=== PATIENT | female | born 1950 | race Caucasian/White ===

== ENCOUNTER 2019-11-28 12:53 | Inpatient (IN) ==
[2019-11-28] MEDS ORDERED: ONDANSETRON INJ 2 MG/ML 2 ML VIAL IV PRN (13:58)
[2019-11-28] MEDS ORDERED: MoRPHine SULFATE 4 MG/ML 1 ML CARP\\VIAL IV STA (13:58)
--- NOTE | 2019-11-28 14:34 | Emergency Department Note ---
Impression & Plan Uncontrolled type 2 diabetes mellitus, Left sided sciatica, Urinary tract infection ED Provider Note CHIEF COMPLAINT: Low back pain, hyperglycemia HISTORY OF PRESENTING ILLNESS: This is a 69-year-old female who presents to the emergency department by private vehicle with complaint of low back pain radiating into her left leg for the past 2 months. Patient states that she does not have a primary care provider but she has been going to other emergency departments and urgent cares to receive treatment for this. She notes that she went to [facility] emergency department for her back pain initially and they did an MRI of her back and told her she had a lot of arthritis in her back. She states they started her on a muscle relaxer and steroids for this. She states the pain is constant, starts in her left lower back and radiates down the buttock into the leg, she describes it as burning and stabbing and rates the pain 8/10. She has been taking Tylenol without much relief. Patient's granddaughter states that she was trying to get her set up with a primary care provider and took her to [facility] today for the back pain, they were concerned because her blood glucose level was >600, so they sent her to the ER for further evaluation. The patient notes that she used to be on insulin, but she stopped taking all of her medications about 2 years ago. Patient's granddaughter states that she seems to have gone downhill over the past 2 to 3 months and has lost over 30 pounds and is having difficulty caring for herself. She states she also is barely able to walk because of the pain in her back and leg. The patient denies any headaches, neck pain, chest pain, shortness of breath, abdominal pain, dizziness or syncope. She denies any fevers or chills. She reports a h istory of smoking about 1/2 pack a day, but states she quit smoking about 2 months ago when her back pain became really bad. She denies any numbness/tingling or weakness in the legs, but is having difficulty walking because of severe pain. She denies any bowel or bladder dysfunction and denies saddle paresthesias. REVIEW OF SYSTEMS: A complete 10 point review of systems was reviewed with the patient with pertinent positives and negatives as per history of present illness. All else were negative. PAST MEDICAL HISTORY: Type 2 diabetes SOCIAL HISTORY: Lives at home, she is a former smoker ALLERGIES: Reviewed in chart and with the patient PHYSICAL EXAM: CONSTITUTIONAL: Pleasant and cooperative. Nontoxic-appearing and in no acute distress. Cachectic and thin, appears dehydrated and malnourished. HEENT: Normocephalic, atraumatic. Pharynx normal. Dry mucous membranes. NECK: Supple, full active range of motion without discomfort. RESPIRATORY: Clear to auscultation bilaterally with no wheezing, crackles, rhonchi or stridor. Equal expansion bilaterally. CARDIOVASCULAR: Regular rate and rhythm with no murmurs, rubs or gallops. Normal peripheral perfusion. No edema. GASTROINTESTINAL: Soft, nontender, nondistended. No palpable masses or HSM. Bowel sounds present in all quadrants. No CVA tenderness bilaterally. MUSCULOSKELETAL: Full range of motion of all joints without discomfort. INTEGUMENTARY: Poor skin turgor with dry skin. Skin is pink and warm, brisk capillary refill. No rash or other significant dermatologic conditions noted. NEUROLOGIC: Alert and oriented X 4 with normal affect. No focal neurologic deficits noted. 5/5 strength in all 4 extremities, dorsiflexion and plantarflexion intact bilaterally. Sensation intact light touch in all 4 extremities. Normal speech. ED COURSE AND MEDICAL DECISION MAKING: CC: Patient presenting with complaint of low back pain, hyperglycemia DIFFERENTIAL DIAGNOSIS: Includes, but not limited to hyperglycemia, uncontrolle d diabetes, DKA, HHNS, dehydration, electrolyte abnormality, acute kidney injury, lumbar radiculopathy/sciatica, osteoarthritis, lumbar muscle strain/sprain, vertebral fracture, degenerative disc disease, among others. INTERPRETATION OF LABS: Initial POC glucose was > 600. Mild leukocytosis with left shift, no anemia, normal platelets, marked hyperglycemia with refractory hyponatremia and hypochloremia, hyperkalemia, gap is closed, mildly elevated BUN with normal creatinine, elevated alk phos, liver enzymes otherwise normal. TSH is elevated, but T4 is within normal limits. UA appears consistent with a UTI. EKG: Shows normal sinus rhythm with a rate of 84 bpm, right atrial enlargement, left axis deviation, no ST or T wave abnormalities, no ectopy by my interpretation. No previous EKGs available for comparison. MEDICATION RECONCILIATION: I attest that I have personally reviewed the patient's current medication list. INITIAL VITAL SIGNS REVIEW: I reviewed the patient's initial vital signs and interpret them as follows: T: Afebrile; BP: Normotensive; HR: Mildly tachycardic; RR: Within normal limits; Pulse Ox: Within normal limits on room air. Blood pressure screening: The patient was found to have normal blood pressure on screening and does not require follow-up for repeat blood pressure check. MDM SUMMARY: Patient was evaluated at bedside, history and physical exam performed. Patient is alert and oriented, in no acute distress, resting calmly in stretcher. She is complaining of pain in her left lower back that radiates into the left leg. She is neurovascularly intact on exam with equal strength and sensation and denies bowel or bladder dysfunction. I do not suspect cauda equina clinically. Patient was sent from the doctor's office today with concern for hyperglycemia, her POC glucose on arrival is >600. The patient did receive steroids recently to treat her back pain, this may have exacerbated her hyperglycemia. Patient is a poor historian, some of the history is obtained from her granddaughter, who notes that she stopped taking all of her medications including her insulin about 2 years ago when she lost her psychiatrist, and she has not been having any type of medical care until recently when she started having back problems. The patient states she was on other medications, but she cannot tell me what they were or what they were for. She thinks she might have been on thyroid medicine but is not sure. Cardiac monitoring: An order was placed for continuous cardiac monitoring. The monitor shows a rate of 102 bpm with sinus tachycardia rhythm. The patient notes that she had an imaging study done at an outside hospital about a month ago, she states that this showed lots of arthritis and they told her she would need steroid injections in her back. Records were reviewed from an outside hospital visit on 10/30/2019 at which time she had a CT of the lumbar spine, this showed lumbar spondylosis without any acute fracture and degenerative changes most significant from L4-S1. Orders were placed at bedside for labs, UA, IV fluid bolus x2 L for hydration, EKG, and IV morphine for back pain. Patient discussed with Dr. Roe, who agrees with my assessment, plan, and disposition. Labs reviewed as above, there is a mild leukocytosis, significant hyperglycemia with hyponatremia/hypochloremia and mild hyperkalemia. TSH is elevated, but her free T4 was normal. UA appears consistent with a UTI, urine culture pending. IV Rocephin was ordered to cover for probable UTI. Patient's blood glucose level was persistently in the high 400s after 2 L of fluid, 10 units IV regular insulin was ordered. Patient reassessed multiple times throughout ED stay, she has remained hemodynamically stable and afebrile, neurologically intact, and her pain is improved with the morphine. I discussed the plan for admission with the patient and her granddaughter, they were agreeable to this plan. I [facility] the phone [facility] who agrees to evaluate the patient for admission. The patient was stable at time of admission. The chart was completed utilizing [employer] Speech voice recognition software. Grammatical errors, random word insertions, pronoun errors, and incomplete sentences are an occasional consequence of this system due to software limitations, ambient noise, and hardware issues. Any formal questions or concerns about the content, text, or information contained within the body of this dictation should be directly addressed to the nurse practitioner for clarification. Past Med/Surg History Medical History (Updated 11/28/19 @ 16:53 by ISAÍAS Trejo) DM type 2 (diabetes mellitus, type 2) Hypothyroidism Surgical History (Updated 11/28/19 @ 16:15 by ISAÍAS Scott) History of cholecystectomy Family History (Updated 11/28/19 @ 16:19 by ISAÍAS Scott) Father Diabetes Brother Diabetes Brother Diabetes Social History (Updated 11/28/19 @ 16:18 by ISAÍAS Scott) Smoking Status: Former smoker Smoking End Date: 2 weeks ago; Hx Alcohol Use: No Feels Safe at Home: Yes Allergies Allergies Allergy/AdvReac Type Severity Reaction Status Date / Time Penicillins Allergy Hives Unverified 11/28/19 13:46 Home Meds Home Medications Medication Instructions Recorded Confirmed No Known Home Medications 11/28/19 11/28/19 Results & Data (ED) Vital Signs Vital Signs - 24 hr 11/28/19 13:00 11/28/19 13:02 11/28/19 13:10 Temperature Temperature Source Pulse Rate 94 H 93 H 94 H Pulse Rate from SpO2 Sensor 94 H 93 H 94 H Respiratory Rate 22 21 Blood Pressure 125/69 Blood Pressure Mean 78 Pulse Oximetry 91 90 Oxygen Delivery Method Sepsis Recent Fever Within 48 Hours Sepsis New/Unexplained Change in Mental Status Sepsis Action Taken by Nursing 11/28/19 13:13 11/28/19 13:25 11/28/19 13:30 Temperature 36.9 C Temperature Source Oral Pulse Rate 95 H 102 H 96 H Pulse Rate from SpO2 Sensor Respiratory Rate 20 Blood Pressure 119/83 Blood Pressure Mean 84 Pulse Oximetry 92 Oxygen Delivery Method Room Air Sepsis Recent Fever Within 48 Hours No Sepsis New/Unexplained Change in Mental Status N/A Sepsis Action Taken by Nursing No Action Required 11/28/19 13:40 11/28/19 13:50 11/28/19 14:00 Temperature Temperature Source Pulse Rate 86 89 88 Pulse Rate from SpO2 Sensor Respiratory Rate 20 17 20 Blood Pressure Blood Pressure Mean Pulse Oximetry Oxygen Delivery Method Sepsis Recent Fever Within 48 Hours Sepsis New/Unexplained Change in Mental Status Sepsis Action Taken by Nursing 11/28/19 14:01 11/28/19 14:10 11/28/19 14:20 Temperature Temperature Source Pulse Rate 90 89 85 Pulse Rate from SpO2 Sensor 86 Respiratory Rate 18 19 Blood Pressure 137/86 Blood Pressure Mean 108 Pulse Oximetry 95 Oxygen Delivery Method Sepsis Recent Fever Within 48 Hours Sepsis New/Unexplained Change in Mental Status Sepsis Action Taken by Nursing 11/28/19 14:30 11/28/19 14:31 11/28/19 14:40 Temperature Temperature Source Pulse Rate 85 85 84 Pulse Rate from SpO2 Sensor 85 85 85 Respiratory Rate 17 18 20 Blood Pressure 161/80 H Blood Pressure Mean 97 Pulse Oximetry 93 93 93 Oxygen Delivery Method Sepsis Recent Fever Within 48 Hours Sepsis New/Unexplained Change in Mental Status Sepsis Action Taken by Nursing 11/28/19 15:00 11/28/19 15:15 11/28/19 15:20 Temperature Temperature Source Pulse Rate 88 91 H Pulse Rate from SpO2 Sensor Respiratory Rate 21 24 Blood Pressure 147/90 H Blood Pressure Mean 102 Pulse Oximetry Oxygen Delivery Method Sepsis Recent Fever Within 48 Hours Sepsis New/Unexplained Change in Mental Status Sepsis Action Taken by Nursing 11/28/19 15:30 11/28/19 15:40 11/28/19 15:50 Temperature Temperature Source Pulse Rate 94 H 92 H 90 Pulse Rate from SpO2 Sensor Respiratory Rate 21 21 20 Blood Pressure 122/63 Blood Pressure Mean 72 Pulse Oximetry Oxygen Delivery Method Sepsis Recent Fever Within 48 Hours Sepsis New/Unexplained Change in Mental Status Sepsis Action Taken by Nursing 11/28/19 16:00 Temperature Temperature Source Pulse Rate 94 H Pulse Rate from SpO2 Sensor Respiratory Rate 19 Blood Pressure 124/67 Blood Pressure Mean 75 Pulse Oximetry Oxygen Delivery Method Sepsis Recent Fever Within 48 Hours Sepsis New/Unexplained Change in Mental Status Sepsis Action Taken by Nursing Laboratory Data Result diagrams: 11/28/19 14:51 11/28/19 12:30 Lab Results 11/28/19 11/28/19 11/28/19 Range/Units 12:30 13:31 13:33 WBC (4.8-10.8) K/uL RBC (4.2-5.4) M/uL Hgb (12.0-16.0) g/dL Hct (37-47) % MCV (80-100) fL MCH (25-34) pg MCHC (32-36) g/dL RDW Std Deviation (36.4-46.3) fL RDW Coeff of Colette (11.5-14.5) % Plt Count (130-400) K/uL MPV (7.4-10.4) fL Immature Gran % (Auto) % Neut % (Auto) % Lymph % (Auto) % [place] % (Auto) % Eos % (Auto) % Baso % (Auto) % Neut # (Auto) (1.4-6.5) K/uL Lymph # (Auto) (1.2-3.4) K/uL [place] # (Auto) (0.11-0.59) K/uL Eos # (Auto) (0-0.5) K/uL Baso # (Auto) (0-0.2) K/uL Immature Gran # (Auto) (0.00-0.02) K/uL Sodium 124 L (136-145) mmol/L Potassium 5.2 H (3.5-5.1) mmol/L Chloride 85 L (98-107) mmol/L Carbon Dioxide 30 (21-32) mmol/L Anion Gap 9.0 (3-11) BUN 20 H (7-18) mg/dl Creatinine 0.93 (0.6-1.2) mg/dl Est Cr Clr Drug Dosing 41.8 ml/min Est GFR ( Amer) 73.2 Est GFR (Non-Af Amer) 63.1 BUN/Creatinine Ratio 21.9 H (10-20) Glucose 774 H* (70-99) mg/dl POC Glucose 574 H* > 600 H* (70-99) mg/dl Osmolality (280-300) mOsm/kg Calcium 9.3 (8.5-10.1) mg/dl Phosphorus 3.0 (2.5-4.9) mg/dl Magnesium 2.0 (1.8-2.4) mg/dl Total Bilirubin 0.4 (0.2-1) mg/dl AST 24 (15-37) U/L ALT 38 (12-78) U/L Alkaline Phosphatase 536 H (45-117) U/L Total Protein 8.2 (6.4-8.2) gm/dl Albumin 3.2 L (3.4-5.0) gm/dl Globulin 5.0 H (2.5-4.0) gm/dl Albumin/Globulin Ratio 0.6 L (0.9-2) Beta-Hydroxybutyric Acd 8.35 H (0.2-2.81) mg/dl TSH 11.700 H (0.300-4.500) uIu/ml Free T4 1.08 (0.8-1.6) ng/dl Urine Color Urine Appearance (Clear) Urine pH (4.5-7.5) Ur Specific [place] (1.000-1.030) Urine Protein (Negative) Urine Glucose (UA) (Negative) Urine Ketones (Negative) Urine Blood (Negative) Urine Nitrite (Negative) Urine Bilirubin (Negative) Urine Urobilinogen (Negative) Ur Leukocyte Esterase (Negative) Urine WBC (Auto) (0-5) /hpf Urine RBC (Auto) (0-4) /hpf U Hyaline Cast (Auto) (0-5) /lpf U Epithel Cells (Auto) (0-5) /lpf Urine Bacteria (Auto) (Negative) Urine Yeast (None Prsent) 11/28/19 11/28/19 11/28/19 Range/Units 14:50 14:51 14:55 WBC 10.97 H (4.8-10.8) K/uL RBC 5.03 (4.2-5.4) M/uL Hgb 14.3 (12.0-16.0) g/dL Hct 41.8 (37-47) % MCV 83.1 (80-100) fL MCH 28.4 (25-34) pg MCHC 34.2 (32-36) g/dL RDW Std Deviation 47.3 H (36.4-46.3) fL RDW Coeff of Colette 15.6 H (11.5-14.5) % Plt Count 323 (130-400) K/uL MPV 9.8 (7.4-10.4) fL Immature Gran % (Auto) 0.8 % Neut % (Auto) 75.2 % Lymph % (Auto) 17.6 % [place] % (Auto) 5.9 % Eos % (Auto) 0.4 % Baso % (Auto) 0.1 % Neut # (Auto) 8.25 H (1.4-6.5) K/uL Lymph # (Auto) 1.93 (1.2-3.4) K/uL [place] # (Auto) 0.65 H (0.11-0.59) K/uL Eos # (Auto) 0.04 (0-0.5) K/uL Baso # (Auto) 0.01 (0-0.2) K/uL Immature Gran # (Auto) 0.09 H (0.00-0.02) K/uL Sodium (136-145) mmol/L Potassium (3.5-5.1) mmol/L Chloride (98-107) mmol/L Carbon Dioxide (21-32) mmol/L Anion Gap (3-11) BUN (7-18) mg/dl Creatinine (0.6-1.2) mg/dl Est Cr Clr Drug Dosing ml/min Est GFR ( Amer) Est GFR (Non-Af Amer) BUN/Creatinine Ratio (10-20) Glucose (70-99) mg/dl POC Glucose (70-99) mg/dl Osmolality 300 (280-300) mOsm/kg Calcium (8.5-10.1) mg/dl Phosphorus (2.5-4.9) mg/dl Magnesium (1.8-2.4) mg/dl Total Bilirubin (0.2-1) mg/dl AST (15-37) U/L ALT (12-78) U/L Alkaline Phosphatase (45-117) U/L Total Protein (6.4-8.2) gm/dl Albumin (3.4-5.0) gm/dl Globulin (2.5-4.0) gm/dl Albumin/Globulin Ratio (0.9-2) Beta-Hydroxybutyric Acd (0.2-2.81) mg/dl TSH (0.300-4.500) uIu/ml Free T4 (0.8-1.6) ng/dl Urine Color Yellow Urine Appearance Cloudy A (Clear) Urine pH 5.5 (4.5-7.5) Ur Specific [place] 1.031 H (1.000-1.030) Urine Protein Negative (Negative) Urine Glucose (UA) 3+ H (Negative) Urine Ketones 1+ H (Negative) Urine Blood 2+ H (Negative) Urine Nitrite Positive A (Negative) Urine Bilirubin Negative (Negative) Urine Urobilinogen Negative (Negative) Ur Leukocyte Esterase 2+ H (Negative) Urine WBC (Auto) >30 H (0-5) /hpf Urine RBC (Auto) 10-30 H (0-4) /hpf U Hyaline Cast (Auto) 0 (0-5) /lpf U Epithel Cells (Auto) 5-10 H (0-5) /lpf Urine Bacteria (Auto) 1+ H (Negative) Urine Yeast Budding A (None Prsent) 11/28/19 11/28/19 Range/Units 15:06 16:25 WBC (4.8-10.8) K/uL RBC (4.2-5.4) M/uL Hgb (12.0-16.0) g/dL Hct (37-47) % MCV (80-100) fL MCH (25-34) pg MCHC (32-36) g/dL RDW Std Deviation (36.4-46.3) fL RDW Coeff of Colette (11.5-14.5) % Plt Count (130-400) K/uL MPV (7.4-10.4) fL Immature Gran % (Auto) % Neut % (Auto) % Lymph % (Auto) % [place] % (Auto) % Eos % (Auto) % Baso % (Auto) % Neut # (Auto) (1.4-6.5) K/uL Lymph # (Auto) (1.2-3.4) K/uL [place] # (Auto) (0.11-0.59) K/uL Eos # (Auto) (0-0.5) K/uL Baso # (Auto) (0-0.2) K/uL Immature Gran # (Auto) (0.00-0.02) K/uL Sodium (136-145) mmol/L Potassium (3.5-5.1) mmol/L Chloride (98-107) mmol/L Carbon Dioxide (21-32) mmol/L Anion Gap (3-11) BUN (7-18) mg/dl Creatinine (0.6-1.2) mg/dl Est Cr Clr Drug Dosing ml/min Est GFR ( Amer) Est GFR (Non-Af Amer) BUN/Creatinine Ratio (10-20) Glucose (70-99) mg/dl POC Glucose 475 H* 302 H* (70-99) mg/dl Osmolality (280-300) mOsm/kg Calcium (8.5-10.1) mg/dl Phosphorus (2.5-4.9) mg/dl Magnesium (1.8-2.4) mg/dl Total Bilirubin (0.2-1) mg/dl AST (15-37) U/L ALT (12-78) U/L Alkaline Phosphatase (45-117) U/L Total Protein (6.4-8.2) gm/dl Albumin (3.4-5.0) gm/dl Globulin (2.5-4.0) gm/dl Albumin/Globulin Ratio (0.9-2) Beta-Hydroxybutyric Acd (0.2-2.81) mg/dl TSH (0.300-4.500) uIu/ml Free T4 (0.8-1.6) ng/dl Urine Color Urine Appearance (Clear) Urine pH (4.5-7.5) Ur Specific [place] (1.000-1.030) Urine Protein (Negative) Urine Glucose (UA) (Negative) Urine Ketones (Negative) Urine Blood (Negative) Urine Nitrite (Negative) Urine Bilirubin (Negative) Urine Urobilinogen (Negative) Ur Leukocyte Esterase (Negative) Urine WBC (Auto) (0-5) /hpf Urine RBC (Auto) (0-4) /hpf U Hyaline Cast (Auto) (0-5) /lpf U Epithel Cells (Auto) (0-5) /lpf Urine Bacteria (Auto) (Negative) Urine Yeast (None Prsent) Administered Medications Ondansetron HCl (Ondansetron Inj 2 Mg/Ml 2 Ml Vial) 4 mg IV NOW PRN PRN Reason: nausea Stop: 12/28/19 13:57 Last Admin: 11/28/19 14:10 Dose: 4 mg Documented by: [id number] Discontinued Medications Sodium Chloride (Nss 1000ml) 1,000 mls @ 999 mls/hr IV .[id number] ONE Stop: 11/28/19 16:08 Last Infusion: 11/28/19 15:18 Dose: 0 mls/hr Documented by: [id number] Admin: 11/28/19 14:15 Dose: 999 mls/hr Documented by: [id number] Ceftriaxone Sodium (Rocephin) 1,000 mg in 50 mls @ 100 mls/hr IV NOW STA Stop: 11/28/19 16:20 Last Admin: 11/28/19 16:35 Dose: 100 mls/hr Documented by: [id number] Insulin Human Regular (Novolin-R Insulin Per Unit Charge) 10 units IV NOW STA Stop: 11/28/19 15:09 Last Admin: 11/28/19 15:14 Dose: 10 units Documented by: [id number] Cosigned by: [id number] Morphine Sulfate (Morphine Sulfate 4 Mg/Ml 1 Ml Carp\Vial) 4 mg IV NOW STA Stop: 11/28/19 13:59 Last Admin: 11/28/19 14:11 Dose: 4 mg Documented by: [id number] Discharge Plan Visit Data Chief Complaint: Hyperglycemia ED Provider: Larry Roe ED Midlevel Provider: Joyce Aden Discharge Problem: Uncontrolled type 2 diabetes mellitus, Left sided sciatica, Urinary tract infection Patient Disposition: Admitted As Inpatient Condition: Good Forms Stand Alone Forms: Bustle Prescriptions Prescriptions: No Action No Known Home Medications RF: 0 Referrals Referrals: PCP,NO [Primary Care Provider] - Discharge Problem: Uncontrolled type 2 diabetes mellitus Qualifiers: Glycemic state: with hyperglycemia Qualified Code(s): E11.65 - Type 2 diabetes mellitus with hyperglycemia Urinary tract infection Qualifiers: Urinary tract infection type: acute cystitis Hematuria presence: with hematuria Qualified Code(s): N30.01 - Acute cystitis with hematuria
[2019-11-28 14:59] LABS: Appearance Urine Cloudy (Clear); Bilirubin Urine Negative (Negative); Blood Urine 2+ (Negative); Color Urine Yellow; Glucose Urine UA 3+ (Negative); Ketones Urine 1+ (Negative); Leukocyte Esterase Urine 2+ (Negative); Nitrite Urine Positive (Negative); Protein Urine Negative (Negative); Specific Gravity Urine 1.031 (1.000-1.030); Urobilinogen Urine Negative (Negative); pH Urine 5.5 (4.5-7.5)
[2019-11-28 15:01] LABS: Albumin Globulin Ratio 0.6 (0.9-2); Albumin Level 3.2 gm/dl (3.4-5.0); BUN Creatinine Ratio 21.9 (10-20); Bilirubin,Total 0.4 mg/dl (0.2-1); Calcium 9.3 mg/dl (8.5-10.1); Creatinine Clr Calc Pharmacy 41.8 ml/min; Est GFR (African American) 73.2; Est GFR (Non-African American) 63.1; Potassium 5.2 mmol/L (3.5-5.1); Total Protein 8.2 gm/dl (6.4-8.2)
[2019-11-28 15:05] LABS: Basophils # (auto) 0.01 K/uL (0-0.2); Basophils % (auto) 0.1 %; Eosinophils # (auto) 0.04 K/uL (0-0.5); Eosinophils % (auto) 0.4 %; Hematocrit (blood only) 41.8 % (37-47); Hemoglobin 14.3 g/dL (12.0-16.0); Immature Granulocytes # (auto) 0.09 K/uL (0.00-0.02); Immature Granulocytes % (auto) 0.8 %; Lymphocytes # (auto) 1.93 K/uL (1.2-3.4); Lymphocytes % (auto) 17.6 %; Mean Corpuscular Hemoglobin 28.4 pg (25-34); Mean Corpuscular Hgb Conc 34.2 g/dL (32-36); Mean Corpuscular Volume 83.1 fL (80-100); Mean Platelet Volume 9.8 fL (7.4-10.4); Monocytes # (auto) 0.65 K/uL (0.11-0.59); Monocytes % (auto) 5.9 %; Neutrophils # (auto) 8.25 K/uL (1.4-6.5); Neutrophils % (auto) 75.2 %; Platelet Count 323 K/uL (130-400); RDW Coefficient of Variation 15.6 % (11.5-14.5); RDW Standard Deviation 47.3 fL (36.4-46.3); Red Blood Count 5.03 M/uL (4.2-5.4); White Blood Count 10.97 K/uL (4.8-10.8)
[2019-11-28] MEDS ORDERED: SODIUM CHLORIDE 0.9% 1000ML 1,000 ML IV ONE (15:08)
[2019-11-28] MEDS ORDERED: NovoLIN-R INSULIN PER UNIT CHARGE IV STA (15:08)
[2019-11-28 15:13] LABS: Cast Urine Automated 0 /lpf (0-5); WBC Urine Automated >30 /hpf (0-5)
[2019-11-28 15:14] LABS: Bacteria Urine Automated 1+ (Negative)
[2019-11-28 15:17] LABS: Thyroid Stimulating Hormone 11.7 uIu/ml (0.300-4.500)
[2019-11-28] MEDS ORDERED: cefTRIAXone SODIUM 1,000 MG/50 ML BAG IV STA (15:51)
[2019-11-28 15:57] LABS: Beta-Hydroxybutyrate 8.35 mg/dl (0.2-2.81); T4 Free Thyroxine 1.08 ng/dl (0.8-1.6)
--- NOTE | 2019-11-28 16:19 | History & Physical Report ---
Date of Service November 28, 2019 Assessment & Plan (1) Intractable back pain: -Admit to [facility] -[facility] of [facility] back pain and hyperglycemia -Patient has not seen a medical provider in over 1 year and also self stopped all of her home medications -CT lumbar spine 10/30/2019 performed at [facility]: Mild degenerative changes of the spine worst at L4-S1 where there is anterior vertebral interspace narrowing, endplate degenerative changes and facet arthropathy. There is moderate central canal and bilateral foraminal narrowing at L4-L5 and mild bilateral foraminal narrowing at L5-S1 -Lumbar spine MRI -Spine Ortho consult -Pain control -PT/OT (2) Uncontrolled type 2 diabetes mellitus: -Unknown HgbA1c -Patient self stopped home medications including insulin about 1 year ago -Presented with glucose 774, no signs of DKA -Received insulin 10 units IV in the ED with improvement in blood sugar -Pharmacy glycemic consult (3) Elevated alkaline phosphatase level: -Alk phos noted to be 536, remainder LFTs WNL -Check RUQ US (4) Weight loss: -Patient reports a 20 pound weight loss in the past 1 month -Uncontrolled diabetes likely contributing -Patient does not seem to be up-to-date with routine screening colonoscopy and mammogram -recommend these as an outpatient (5) Hyponatremia: -Pseudohyponatremia in the setting of severe hyperglycemia -Corrected sodium 140 (6) Hyperkalemia: -Mild hyperkalemia noted, K+ 5.2 -Received IV insulin -Rechecking BMP (7) Urinary tract infection: -UA suggests UTI -S/p ceftriaxone in the ED, will continue with -Follow urine culture (8) Hypothyroidism: -TSH 11.7, normal free T4 1.0 -TSH may be elevated as an acute phase reactant in the setting of acute illness. Given normal T4, will not start levothyroxine at this time. (9) Pulmonary nodules: -Noted on CT report from [facility] -Small nodules in the lung bases -will need close outpatient follow-up given patient's smoking history (10) DVT prophylaxis: -SQ heparin History of Present Illness Chief Complaint: Back pain Primary Care Provider: NO PCP 69-year-old female with PMH DM type II who was sent to the ED from [facility] office for evaluation of intractable back pain and hyperglycemia. Patient reports she has not seen a medical provider in over 1 year and self stopped all of her home medications. Patient is a poor historian. Patient was seen at [facility] about 1 month ago for intractable back pain. She was given Flexeril. Symptoms not improve and patient was seen at [facility] office about 2 weeks ago and was given steroid taper and baclofen. Symptoms still persisted and she was seen in the office again today. Blood sugar was found to be over 600 and there was also some concern for left leg weakness associated with the back pain so patient was sent to the ED for further evaluation. Patient reports her pain is mostly located in the left lower back and radiates into the hip. She reports her left leg feels numbness and tingling at times. Reports ambulation has been difficult due to the pain. She has had some urinary incontinence however feels as though that is due to ambulatory dysfunction from severe pain. Denies dysuria. No other recent illnesses, fevers, chills. She denies chest pain shortness of breath. No lightheadedness, dizziness, diaphoresis, syncopal events. Report her appetite has been very poor and she has lost about 20 pounds over the past 1 month. Denies abdominal pain, nausea, vomiting, diarrhea. In the ED, initial glucose is found to be 774. Does not appear to be in DKA. UA suggest UTI. Patient was given IV ceftriaxone, 10 units insulin IV, morphine 4 mg IV, Zofran, and IVF. Allergies Allergy/AdvReac Type Severity Reaction Status Date / Time Penicillins Allergy Hives Unverified 11/28/19 13:46 Home Medications Home Medications Medication Instructions Recorded Confirmed Type No Known Home Medications 11/28/19 11/28/19 History Past Med/Surg History Medical History DM type 2 (diabetes mellitus, type 2) Hypothyroidism Surgical History History of cholecystectomy Family History Father Diabetes Brother Diabetes Brother Diabetes Social History Smoking Status: Former smoker Smoking End Date: 2 weeks ago; Hx Alcohol Use: No Feels Safe at Home: Yes Review of Systems Review of Systems: ROS per HPI, all other systems reviewed and negative Physical Exam Physical Exam: please refer to Dr. Collins's addendum for physical exam Results & Data Results & Data ([facility]) Vital Signs (Past 12 Hours) Vital Signs Temp Pulse Resp BP Pulse Ox 11/28/19 16:00 94 H 19 124/67 11/28/19 15:50 90 20 11/28/19 15:40 92 H 21 11/28/19 15:30 94 H 21 122/63 11/28/19 15:20 91 H 24 11/28/19 15:15 88 21 11/28/19 15:00 147/90 H 11/28/19 14:40 84 20 93 11/28/19 14:31 85 18 161/80 H 93 11/28/19 14:30 85 17 93 11/28/19 14:20 85 19 95 11/28/19 14:10 89 18 11/28/19 14:01 90 137/86 11/28/19 14:00 88 20 11/28/19 13:50 89 17 11/28/19 13:40 86 20 11/28/19 13:30 96 H 119/83 11/28/19 13:25 102 H 11/28/19 13:13 36.9 C 95 H 20 92 11/28/19 13:10 94 H 21 90 11/28/19 13:02 93 H 22 11/28/19 13:00 94 H 125/69 91 Laboratory Results Short CBC 11/28/19 Range/Units 14:51 WBC 10.97 H (4.8-10.8) K/uL Hgb 14.3 (12.0-16.0) g/dL Hct 41.8 (37-47) % Plt Count 323 (130-400) K/uL BMP 11/28/19 12:30 Sodium 124 L Potassium 5.2 H Chloride 85 L Carbon Dioxide 30 BUN 20 H Creatinine 0.93 Glucose 774 H* Calcium 9.3 Liver Function 11/28/19 Range/Units 12:30 Total Bilirubin 0.4 (0.2-1) mg/dl AST 24 (15-37) U/L ALT 38 (12-78) U/L Alkaline Phosphatase 536 H (45-117) U/L Albumin 3.2 L (3.4-5.0) gm/dl Urine 11/28/19 Range/Units 14:50 Urine Color Yellow Urine Appearance Cloudy A (Clear) Urine pH 5.5 (4.5-7.5) Ur Specific Eclectic 1.031 H (1.000-1.030) Urine Protein Negative (Negative) Urine Glucose (UA) 3+ H (Negative) Code Status & VTE Plan VTE Prophylaxis Plan VTE Prophylaxis will be ordered: Yes Supervising Physician Co-Signing Physician Notes Patient was seen and examined by me, care coordinated with ISAÍAS Scott. Please see her note above for further details. Mrs. Reid is a 69-year-old female, with history of diabetes mellitus, hypothyroidism, tobacco use, who presents with hyperglycemia, hyponatremia, sciatica/left hip pain, radiating down to her left lower extremity. Patient has not seen primary care doctor in a long time, and stopped taking her medications for at least a year. For the past couple of weeks though she has been feeling worse, weak, and has been having a lot of pain coming from her lower back left hip down to her leg. She reports pain to be sharp and visited several ERs recently. She also now presented to [facility] primary care doctor however was referred to emergency room for her ongoing problems. In the ED her blood glucose level was found to be in the 700s, white blood cell count elevated at 10.9 thousand, sodium 124 in the setting of hyperglycemia, potassium 5.2. Interestingly her alk phos was elevated at 500s. In the ED she received a liter of normal saline, 10 IV units of insulin and morphine. Currently she is lying in bed, says that she is much more comfortable now. She is able to answer questions appropriately. She is very thin female, reports weight loss about 20 pounds in the past couple of weeks. She also reports some urinary incontinence however it is not quite clear if it is because she could not make it to the bathroom in time, or because she is unable to hold it. Reports both. No stool incontinence. Denies any fevers, chills, chest pain, shortness of breath, abdominal pain, nausea or vomiting. Heart sounds are regu lar, no murmurs noted. Lung sounds without any wheezes, good air movement, mild diffuse rhonchi. She is moving upper extremities and lower extremities without much difficulty, however she is holding her left buttocks area. Abdomen is soft, thin, nondistended, positive bowel sounds, no appreciable tenderness at the right upper quadrant noted. However patient also received morphine in ED. Skin is warm dry, well-perfused. We will recheck her BMP, and will closely monitor her glucose levels. Glycemic management and music therapist. Hemoglobin A1c. UA significant for nitrites, bacteria, leuk esterase, started on Rocephin in the ED empirically. Will await urine cultures, will continue Rocephin for now. Given concerning pain and possible incontinence, will obtain MRI of lower back, may need consult orthopedics. Given her elevated alk phos, will consider right upper quadrant ultrasound. Rey Collins MD (1) Urinary tract infection Hematuria presence: with hematuria Urinary tract infection type: acute cystitis Qualified Code(s): N30.01 - Acute cystitis with hematuria (2) Uncontrolled type 2 diabetes mellitus Glycemic state: with hyperglycemia Qualified Code(s): E11.65 - Type 2 diabetes mellitus with hyperglycemia
[2019-11-28 17:22] LABS: Creatinine Clr Calc Pharmacy 63.7 ml/min; Est GFR (Non-African American) 93.1
[2019-11-28 17:45] LABS: Potassium 3.8 mmol/L (3.5-5.1)
[2019-11-28] MEDS ORDERED: MODERATE STRESS LEVEL ONE (18:13)
[2019-11-28] MEDS ORDERED: INSULIN PROTOCOL GOAL RANGE ONE (18:13)
[2019-11-28] MEDS ORDERED: INSULIN REGULAR 250 UNITS in SODIUM CHLORIDE 0.9% 247.5 ML IV SCH ×2 (18:13→18:30)
[2019-11-28] MEDS ORDERED: ACETAMINOPHEN 325 MG TAB PO PRN (18:13)
--- NOTE | 2019-11-28 18:18 | Ultrasound Report ---
US liver CLINICAL HISTORY: Elevated alkaline phosphatase COMPARISON STUDY: No previous studies for comparison. FINDINGS: The pancreas appears sonographically normal. The liver appears sonographically normal. The gallbladder was surgically absent There is no ductal dilatation. The common bile duct measures 6 mm. There were 2 nonspecific echogenic foci within the common hepatic /bile duct. There is no evidence of right-sided hydronephrosis IMPRESSION: 1. Ultrasonographically normal pancreas and liver 2. Surgically absent gallbladder 3. No ductal dilatation. There were 2 nonspecific small echogenic foci within the common hepatic/bernardo e duct. It is unclear whether these were real or artifactual. ACT 112: Negative or not required by law. Electronically signed by: Nicolas Metzger M.D. 11/28/2019 6:16 PM
[2019-11-28] MEDS ORDERED: PHARMACY GLYCEMIC MGMT CONSULT PRN (18:21)
[2019-11-28] MEDS ORDERED: GLUCOSE 10 TABS/TUBE PO PRN (18:30)
[2019-11-28] MEDS ORDERED: DEXTROSE 50% 50 ML SYRINGE IV PRN (18:30)
[2019-11-28] MEDS ORDERED: GLUCAGON FOR INJ 1 MG VIAL IM PRN (18:30)
[2019-11-28] MEDS ORDERED: CARBOHYDRATES FOR HYPOGLYCEMIA PO PRN (18:30)
[2019-11-28] MEDS ORDERED: GLUCOSE 40% GEL 15 GM TUBE PO PRN (18:30)
[2019-11-28] MEDS ORDERED: INSULIN GLARGINE SOLOSTAR 100 UNITS/ML 3 ML PEN SC ONE (18:45)
[2019-11-28] MEDS: ACETAMINOPHEN 325 MG TAB PO SCH (18:59)
[2019-11-28] MEDS: SODIUM CHLORIDE 0.9% 1000ML 1,000 ML IV SCH (19:05)
--- NOTE | 2019-11-28 20:01 | Pharmacy Report ---
Glycemic Control Consultation - Date of Service November 28, 2019 - Scope Scope: Glycemic Pharmacist consulted for glycemic control and to write orders per [facility] inpatient glycemic control protocol. - Objective Weight: 45.7 kg Accuchecks BSG (last 24hrs): 11/28/19 11/28/19 11/28/19 12:30 13:31 13:33 Glucose 774 H* POC Glucose 574 H* > 600 H* 11/28/19 11/28/19 11/28/19 14:57 15:06 16:25 Glucose 437 H* POC Glucose 475 H* 302 H* 11/28/19 11/28/19 18:20 18:23 Glucose POC Glucose 385 H* 370 H* Laboratory Data (last 24hrs): 11/28/19 11/28/19 11/28/19 12:30 14:55 14:57 Potassium 5.2 H 3.8 D Carbon Dioxide 30 29 Anion Gap 9.0 5.0 Creatinine 0.93 0.61 D Est Cr Clr Drug Dosing 41.8 63.7 Osmolality 300 Beta-Hydroxybutyric Acd 8.35 H - Recent Pertinent Medications Outpatient Anti-diabetic Regimen: * N/A - patient has not had established primary care in several years * Patient reports to previously taking insulin * Per outpatient fill history - recently filled prednisone taper * A1c ordered and pending Risk Factors for Insulin Resistance: * Infection: Ceftriaxone 1 g IV q24h - UTI * IVF: NSS @125 mL/hr * Diet: T2DM - Assessment & Plan Assessment & Plan: ASSESSMENT: * DD is a 69 year old female who presented to the ED this afternoon with intractable back pain and hyperglycemia * Patient reports that she was previously on insulin as an outpatient, but that she has not had established primary care in quite some time. Of note: patient recently prescribed prednisone taper for her back pain. * BSG in ED of 774 mg/dL - given a 10 unit IV regular insulin bolus and BSG decreased to 302 mg/dL * Initially attempted to avoid insulin infusion due to rapid BSG correction and lack of concern for DKA. However, upon further discussion with admitting hospitalist it was decided that an insulin infusion would be the best and safest way to proceed. Additionally, it would allow us to more easily determine insulin needs in case patient will require insulin upon discharge. Will assess HbA1c once available. * IV Insulin infusion started at 1.1 unit/hr * Lantus 10 units (~0.2 unit/kg) SC x 1 ordered at time of drip initiation PLAN FOR INPATIENT GLYCEMIC CONTROL: * Starting IV insulin infusion per moderate stress protocol * Goal Range 110 - 180 mg/dl * Basal insulin * Lantus 10 units (~0.2 unit/kg) SC x 1 * Bolus insulin * NovoLog per scale ACHS or Q6hrs while NPO * per insulin infusion adjustment calculator * Please note that the plan above was derived based on current level of insulin resistance and hospital stress. These recommendations are appropriate for inpatient admission only. Plan of care upon discharge will need to be reassessed to avoid potential outpatient hypo/hyperglycemia. Thank you.
[2019-11-28] MEDS: HEPARIN SOD 5,000 UNIT/0.5 ML VIAL SQ SCH (20:22)
[2019-11-28] MEDS ORDERED: INSULIN ASPART 100 UNITS/ML 3 ML PEN SC SCH (21:00)
[2019-11-29] MEDS: SODIUM CHLORIDE 0.9% 1000ML 1,000 ML IV SCH ×3 (03:05→19:59)
[2019-11-29] MEDS: ACETAMINOPHEN 325 MG TAB PO SCH ×3 (06:15→21:10)
[2019-11-29 06:30] LABS: Hematocrit (blood only) 40.4 % (37-47); Hemoglobin 13.4 g/dL (12.0-16.0); Mean Corpuscular Hemoglobin 27.8 pg (25-34); Mean Corpuscular Hgb Conc 33.2 g/dL (32-36); Mean Corpuscular Volume 83.8 fL (80-100); Mean Platelet Volume 9.3 fL (7.4-10.4); Platelet Count 327 K/uL (130-400); RDW Standard Deviation 49.6 fL (36.4-46.3); Red Blood Count 4.82 M/uL (4.2-5.4); White Blood Count 10.24 K/uL (4.8-10.8)
[2019-11-29 06:45] LABS: Estimated Average Glucose 424 mg/dl; Hemoglobin A1C 16.4 % (4.5-5.6)
--- NOTE | 2019-11-29 06:52 | Electrocardiogram Report ---
Test Reason : Blood Pressure : / mmHG Vent. Rate : 084 BPM Atrial Rate : 084 BPM P-R Int : 148 ms QRS Dur : 080 ms QT Int : 380 ms P-R-T Axes : 075 -34 055 degrees QTc Int : 449 ms Poor data quality, interpretation may be adversely affected Normal sinus rhythm Right atrial enlargement Left axis deviation Septal infarct , age undetermined Abnormal ECG No previous ECGs available Confirmed by Cody Suh ([id number]) on 11/29/2019 6:52:27 AM Referred By: REFERRED SELF Confirmed By:Cody Suh
[2019-11-29 07:06] LABS: Calcium 8.2 mg/dl (8.5-10.1); Creatinine Clr Calc Pharmacy 92.5 ml/min; Est GFR (African American) 122.1; Est GFR (Non-African American) 105.3; Potassium 3.4 mmol/L (3.5-5.1)
[2019-11-29] MEDS ORDERED: GADOBUTROL 65ML VIAL IV ONE (07:07)
--- NOTE | 2019-11-29 08:15 | Magnetic Resonance Report ---
LUMBAR SPINE MRI WITH AND WITHOUT CONTRAST HISTORY: intractable back pain, left leg weakness TECHNIQUE: Multiplanar multisequence MRI of the lumbar spine was performed both before and after the intravenous administration of contrast. COMPARISON: None. FINDINGS: For the purpose of the report the L5-S1 disc space will be located on axial image 23 of 25. Mild levoscoliosis. No fracture or subluxation. Mild disc space narrowing at L4-L5 and severe disc sp david narrowing at L5-S1. Moderate facet degenerative changes L5-S1. Mild facet degenerative changes at L3-L4 and L4-L5. Paraspinal soft tissues are unremarkable. No abnormal enhancement identified. The c onus terminates at the L1-L2 disc space level. L1-L2: Tiny broad-based posterior disc bulge without significant central canal or neural foraminal na rrowing. L2-L3: No significant central canal or neural foraminal narrowing. L3-L4: Tiny broad-based posterior disc bulge asymmetric to the left resulting in mild left-sided neur al foraminal narrowing. This abuts the exiting left L3 nerve root at this level. No significant right -sided neural foraminal narrowing or central canal narrowing. L4-L5: Small broad-based posterior disc bulge with a small right paracentral focal disc protrusion. T his abuts and slightly displaces the transiting right L5 nerve root. There is also moderate right lester ral foraminal narrowing. Mild central canal narrowing is also noted. The right paracentral disc protr usion measures 14 x 5 mm and is best seen on axial image 19. L5-S1: Small broad-based posterior disc osteophyte complex asymmetric to the left with bilateral face t hypertrophy resulting in severe left-sided neural foraminal narrowing with impingement of the exiti ng left L5 nerve root. No significant central canal or right-sided neural foraminal narrowing. IMPRESSION: 1. Small right paracentral focal disc protrusion at L4-L5 which abuts and slightly displaces the hopson siting right L5 nerve root. There is also moderate right neural foraminal narrowing. 2. Small broad-based posterior disc osteophyte complex asymmetric to the left with bilateral facet hy pertrophy resulting in severe left-sided neural foraminal narrowing with impingement of the exiting l eft L5 nerve root. 3. Additional degenerative changes as described above. ACT 112: Negative or not required by law. Electronically signed by: Emanuel Mckee M.D. 11/29/2019 8:14 AM
[2019-11-29] MEDS: INSULIN ASPART 100 UNITS/ML 3 ML PEN SC SCH ×4 (08:43→21:11)
[2019-11-29] MEDS: HEPARIN SOD 5,000 UNIT/0.5 ML VIAL SQ SCH ×2 (08:44→21:10)
[2019-11-29] MEDS ORDERED: PNEUMOCOCCAL Polysaccharide Vaccine 25mcg/0.5mL vial/Syr IM ONE (09:00)
--- NOTE | 2019-11-29 11:11 | Orthopedic Consultation ---
Date of Consultation November 29, 2019 Assessment & Plan (1) Left sided sciatica: I have reviewed the findings of the MRI with the patient in detail as well as my exam findings. From a surgical perspective she would require a two-level decompression and fusion to adequately address the stenosis and degeneration. In her current medical status did not think she is a suitable surgical candidate. I recommend physical therapy and occupational therapy as well as consultation with pain management to see if they could do an injection to make her more comfortable while medically she improves. If she can get her diabetes under control and improve her A1c we would consider possible surgical intervention. She could be seen in our [facility] office for follow-up. History of Present Illness Attending Physician: Michael Castillo MD History of Present Illness with a 2-month history of increasing lower back pain that radiates down her left leg.Patient is a 67-year-old female She has gone to several urgent cares and emergency rooms for care. She just established care through her primary care physician and was sent to the emergency room due to her back pain and high blood glucose levels. She is not had any specific treatment other than a course of steroids and muscle relaxer. She is not having any symptoms on the right- hand side. She describes her pain in her leg as a burning sensation the leg pain is worse than the back pain. She is having difficulties with ambulation. An MRI was recently performed here in the hospital. Allergies Allergy/AdvReac Type Severity Reaction Status Date / Time Penicillins Allergy Hives Unverified 11/28/19 13:46 Home Medications Home Medications Medication Instructions Recorded Confirmed Type No Known Home Medications 11/28/19 11/28/19 History Patient History Medical History DM type 2 (diabetes mellitus, type 2) Hypothyroidism Surgical History History of cholecystectomy Family History Father Diabetes Brother Diabetes Brother Diabetes Social History Smoking Status: Former smoker Cigarettes Per Day: 2; Smoking End Date: 2 weeks ago; Second Hand Exposure: No; Do You Dip or Chew Tobacco: No; Tobacco Cessation Education Requested by Patient: Yes Hx Alcohol Use: No Hx Substance Use: No Communication Ability: Effective Beliefs That Will Affect Care: None Current Living Situation: Family Other Information That Helps Us Care for You: No Feels Safe at Home: Hesitant to Answer Safety Concerns: Feels Safe At This Time, Afraid for Self and Afraid for Others in Home Assistive Devices: Cane Physical Exam Physical Exam: On exam she is alert and oriented. She is obviously uncomfortable. She is hyperesthetic in the leg itself on the left. She is nontender on the right. Her motor exam exhibits a breakaway exam secondary to her pain. She has full strength with dorsiflexion plantarflexion will not actively lift her heel off the bed. She has difficulties rolling from side to side. She did not tolerate a straight leg raise secondary to the hyperesthesia. Her skin is clean dry and intact. Gait was not observed. Results & Data ([facility]) Vital Signs (Past 12 Hours) Vital Signs Temp Pulse Resp BP Pulse Ox 11/29/19 08:56 36.7 C 75 17 147/75 H 95 11/29/19 00:35 36.8 C 81 16 134/76 93 Diagnostic Findings MRI of the lumbar spine performed here in the hospital is available for review. This shows degenerative disc disease at L4-5 and L5-S1. There is facet arthropathy with a right paracentral disc herniation at L4-5. There is bilateral neuroforaminal stenosis at L4-5 and L5-S1. No fractures or subluxations are noted.
[2019-11-29] MEDS ORDERED: INSULIN GLARGINE SOLOSTAR 100 UNITS/ML 3 ML PEN SC ONE (12:45)
[2019-11-29] MEDS ORDERED: INSULIN REGULAR 250 UNITS in SODIUM CHLORIDE 0.9% 247.5 ML IV SCH (12:45)
--- NOTE | 2019-11-29 12:58 | Pharmacy Report ---
Pharmacy Glycemic Short Note 2 - Date of Service November 29, 2019 - Glycemic Short BSG Results (Last 24 hours): 11/28/19 11/28/19 11/28/19 12:30 13:31 13:33 Glucose 774 H* POC Glucose 574 H* > 600 H* 11/28/19 11/28/19 11/28/19 14:57 15:06 16:25 Glucose 437 H* POC Glucose 475 H* 302 H* 11/28/19 11/28/19 11/28/19 18:20 18:23 20:09 Glucose POC Glucose 385 H* 370 H* 387 H* 11/28/19 11/28/19 11/28/19 21:18 22:06 23:20 Glucose POC Glucose 346 H* 254 H 234 H 11/29/19 11/29/19 11/29/19 00:05 01:15 03:04 Glucose POC Glucose 224 H 193 H 150 H 11/29/19 11/29/19 11/29/19 06:02 06:03 11:32 Glucose 111 H POC Glucose 115 H 310 H* 11/29/19 11:33 Glucose POC Glucose 289 H Outpatient Anti-diabetic Regimen: * N/A - patient has not had established primary care in several years * Patient reports to previously taking insulin * Per outpatient fill history - recently filled prednisone taper * A1c significantly elevated to 16.4% on 11/28/19 Risk Factors for Insulin Resistance: * Infection: Ceftriaxone 1 g IV q24h - UTI * Diet: T2DM ASSESSMENT: 11/28 * BSG's trended down nicely overnight to 115 mg/dL. Insulin drip has held at that time - was running at 1.4 units/hr prior. However, BSG's with significant and abrupt increase from breakfast to lunch today with lunch BSG <300 mg/dL * Discussed w Dr. Castillo - OK to temporarily resume insulin drip, but also OK to transition off later today if clinically appropriate * Will give 0.4 units/kg of Lantus now to help with drip transition 11/27 * DD is a 69 year old female who presented to the ED this afternoon with intractable back pain and hyperglycemia * Patient reports that she was previously on insulin as an outpatient, but th at she has not had established primary care in quite some time. Of note: patient recently prescribed prednisone taper for her back pain. * BSG in ED of 774 mg/dL - given a 10 unit IV regular insulin bolus and BSG decreased to 302 mg/dL * Initially attempted to avoid insulin infusion due to rapid BSG correction and lack of concern for DKA. However, upon further discussion with admitting hospitalist it was decided that an insulin infusion would be the best and safest way to proceed. Additionally, it would allow us to more easily determine insulin needs in case patient will require insulin upon discharge. Will assess HbA1c once available. * IV Insulin infusion started at 1.1 unit/hr * Lantus 10 units (~0.2 unit/kg) SC x 1 ordered at time of drip initiation PLAN FOR INPATIENT GLYCEMIC CONTROL: * Start insulin drip @ 1.2 units/hr then titrate per protocol. Goal range 110- 180 mg/dL * Criteria for insulin drip discontinuation (both) * BSG in goal range x2 consecutive checks * Insulin drip rate less than 0.5 units/hr * Basal insulin * Lantus 18 units SQ x1 * Bolus insulin * NovoLog per scale ACHS w CHO ratio determined by insulin drip calculator
[2019-11-29] MEDS: KETOROLAC TROMETHAMINE 15 MG/ML VIAL IV PRN ×2 (13:56→19:57)
[2019-11-29] MEDS: cefTRIAXone SODIUM 1,000 MG in DEXTROSE 5% 50 ML IV SCH (15:55)
[2019-11-29] MEDS ORDERED: TRAMADOL HCL 50 MG TABLET PO PRN (20:24)
--- NOTE | 2019-11-29 20:33 | Hospitalist Progress Note ---
Date of Service November 29, 2019 Assessment & Plan (1) Intractable back pain: (1) Intractable back pain: Per admitting service notes: -Patient sent to ED by referral of [facility] office for evaluation of intractable back pain and hyperglycemia -Patient has not seen a medical provider in over 1 year and also self stopped all of her home medications -CT lumbar spine 10/30/2019 performed at [facility]: Mild degenerative changes of the spine worst at L4-S1 where there is anterior vertebral interspace narrowing, endplate degenerative changes and facet arthropathy. There is moderate central canal and bilateral foraminal narrowing at L4-L5 and mild bilateral foraminal narrowing at L5-S1 -Lumbar spine MRI: 1. Small right paracentral focal disc protrusion at L4-L5 which abuts and slightly displaces the transiting right L5 nerve root. There is also moderate right neural foraminal narrowing. 2. Small broad-based posterior disc osteophyte complex asymmetric to the left with bilateral facet hypertrophy resulting in severe left-sided neural foraminal narrowing with impingement of the exiting left L5 nerve root. 3. Additional degenerative changes as described above. -Spine Ortho consult: Recommending pain management service consult first -Pain control: Add tramadol to scheduled Tylenol and as needed Toradol Pain management service consulted -PT/OT evaluation May need rehab placement, patient agreeable (2) Uncontrolled type 2 diabetes mellitus possible HHS Per admitting service notes -Patient self stopped home medications including insulin about 1 year ago -Presented with glucose 774, no signs of DKA -A1c 16 Pharmacy glycemic control consult placed Currently on insulin drip religious educator consulted (3) Elevated alkaline phosphatase level: -Alk phos noted to be 536, remainder LFTs WNL -Check RUQ US: 1. Ultrasonographically normal pancreas and liver 2. Surgically absent gallbladder 3. No ductal dilatation. There were 2 nonspecific small echogenic foci within the common hepatic/bile duct. It is unclear whether these were real or artifactual. -Repeat LFTs in the morning (4) Weight loss: -Patient reports a 20 pound weight loss in the past 1 month -Uncontrolled diabetes likely contributing -Patient does not seem to be up-to-date with routine screening colonoscopy and mammogram -recommend these as an outpatient (5) Hyponatremia: -Pseudohyponatremia in the setting of severe hyperglycemia -Corrected sodium 140 (6) Hyperkalemia: -Mild hyperkalemia noted, K+ 5.2 -Received IV insulin -Resolved (7) Urinary tract infection: Urine culture: E. coli Continue ceftriaxone IV, discontinue after 3 days (8) Hypothyroidism: -TSH 11.7, normal free T4 1.0 -TSH may be elevated as an acute phase reactant in the setting of acute illness. -Check thyroid function test in 4 to 6 weeks (9) Pulmonary nodules: -Noted on CT report from [facility] -Small nodules in the lung bases -will need close outpatient follow-up given patient's smoking history (10) DVT prophylaxis: -SQ heparin Disposition Lives at home PT OT evaluation May need inpatient rehab, patient agreeable Admission and Anticipated Discharge Date Admission Date: November 28, 2019 Subjective Follow-up for intractable back pain Other problems noted below Seen resting in bed, comfortable, not in distress Very pleasant States back pain has improved compared to presentation Still having some weakness of the legs as well as paresthesias Denies urinary or bowel incontinence No dizziness, headache, chest pain, palpitations, abdominal pain, nausea No other symptom Review of Systems Review of Systems: All systems reviewed & are unremarkable except as noted in Subjective Physical Exam Physical Exam: General- oriented x 3, not in distress, speaks in sentences with no effort or accessory muscle use Head- atraumatic Eyes- PERRL, EOMI, anicteric ENT- oropharynx clear Neck- supple, no JVD, no adenopathy, no thyromegaly; carotids +2/2, no bruits appreciated Lungs- clear to auscultation bilaterally, no rales/wheezes Heart- normal rate, regular rhythm; no murmur, no gallop, no rub appreciated Abdomen- normal bowel sounds, nondistended, soft, nontender, no masses or hepatosplenomegaly Extremities- no pretibial edema, no calf tenderness; peripheral pulses intact (+) hyperesthesia of the lower legs Neuro- alert, oriented x 3; CN 2-12 grossly intact; motor 5/5 bilaterally;sensation 100% on all extremities; no other gross focal neurologic deficits Skin- warm & dry Results & Data Results & Data ([facility]) Vital Signs (Past 12 Hours) Vital Signs Temp Pulse Resp BP Pulse Ox 11/29/19 15:42 36.8 C 83 16 137/73 95 11/29/19 08:56 36.7 C 75 17 147/75 H 95 Laboratory Results Laboratory Results - last 24 hr 11/28/19 11/28/19 11/28/19 14:51 21:18 22:06 WBC RBC Hgb Hct MCV MCH MCHC RDW Std Deviation RDW Coeff of Colette Plt Count MPV Sodium Potassium Chloride Carbon Dioxide Anion Gap BUN Creatinine Est Cr Clr Drug Dosing Est GFR ( Amer) Est GFR (Non-Af Amer) BUN/Creatinine Ratio Glucose POC Glucose 346 H* 254 H Estimat Average Glucose 424 Hemoglobin A1c 16.4 H Calcium 11/28/19 11/29/19 11/29/19 23:20 00:05 01:15 WBC RBC Hgb Hct MCV MCH MCHC RDW Std Deviation RDW Coeff of Colette Plt Count MPV Sodium Potassium Chloride Carbon Dioxide Anion Gap BUN Creatinine Est Cr Clr Drug Dosing Est GFR ( Amer) Est GFR (Non-Af Amer) BUN/Creatinine Ratio Glucose POC Glucose 234 H 224 H 193 H Estimat Average Glucose Hemoglobin A1c Calcium 11/29/19 11/29/19 11/29/19 03:04 06:02 06:03 WBC 10.24 RBC 4.82 Hgb 13.4 Hct 40.4 MCV 83.8 MCH 27.8 MCHC 33.2 RDW Std Deviation 49.6 H RDW Coeff of Colette 16.0 H Plt Count 327 MPV 9.3 Sodium Potassium Chloride Carbon Dioxide Anion Gap BUN Creatinine Est Cr Clr Drug Dosing Est GFR ( Amer) Est GFR (Non-Af Amer) BUN/Creatinine Ratio Glucose POC Glucose 150 H 115 H Estimat Average Glucose Hemoglobin A1c Calcium 11/29/19 11/29/19 11/29/19 06:03 11:32 11:33 WBC RBC Hgb Hct MCV MCH MCHC RDW Std Deviation RDW Coeff of Colette Plt Count MPV Sodium 136 Potassium 3.4 L Chloride 101 Carbon Dioxide 29 Anion Gap 6.0 BUN 11 Creatinine 0.42 L Est Cr Clr Drug Dosing 92.5 Est GFR ( Amer) 122.1 Est GFR (Non-Af Amer) 105.3 BUN/Creatinine Ratio 25.0 H Glucose 111 H POC Glucose 310 H* 289 H Estimat Average Glucose Hemoglobin A1c Calcium 8.2 L 11/29/19 11/29/19 11/29/19 14:04 15:07 16:07 WBC RBC Hgb Hct MCV MCH MCHC RDW Std Deviation RDW Coeff of Colette Plt Count MPV Sodium Potassium Chloride Carbon Dioxide Anion Gap BUN Creatinine Est Cr Clr Drug Dosing Est GFR ( Amer) Est GFR (Non-Af Amer) BUN/Creatinine Ratio Glucose POC Glucose 287 H 261 H 258 H Estimat Average Glucose Hemoglobin A1c Calcium 11/29/19 11/29/19 11/29/19 17:04 18:05 19:04 WBC RBC Hgb Hct MCV MCH MCHC RDW Std Deviation RDW Coeff of Colette Plt Count MPV Sodium Potassium Chloride Carbon Dioxide Anion Gap BUN Creatinine Est Cr Clr Drug Dosing Est GFR ( Amer) Est GFR (Non-Af Amer) BUN/Creatinine Ratio Glucose POC Glucose 214 H 282 H 280 H Estimat Average Glucose Hemoglobin A1c Calcium 11/29/19 20:04 WBC RBC Hgb Hct MCV MCH MCHC RDW Std Deviation RDW Coeff of Colette Plt Count MPV Sodium Potassium Chloride Carbon Dioxide Anion Gap BUN Creatinine Est Cr Clr Drug Dosing Est GFR ( Amer) Est GFR (Non-Af Amer) BUN/Creatinine Ratio Glucose POC Glucose 251 H Estimat Average Glucose Hemoglobin A1c Calcium
[2019-11-30] MEDS: KETOROLAC TROMETHAMINE 15 MG/ML VIAL IV PRN ×2 (03:00→09:03)
[2019-11-30] MEDS: SODIUM CHLORIDE 0.9% 1000ML 1,000 ML IV SCH ×2 (03:34→11:49)
[2019-11-30] MEDS: ACETAMINOPHEN 325 MG TAB PO SCH ×3 (05:23→22:07)
[2019-11-30] MEDS ORDERED: INSULIN GLARGINE SOLOSTAR 100 UNITS/ML 3 ML PEN SC ONE (08:00)
[2019-11-30] MEDS: HEPARIN SOD 5,000 UNIT/0.5 ML VIAL SQ SCH ×2 (08:15→20:30)
[2019-11-30] MEDS: INSULIN ASPART 100 UNITS/ML 3 ML PEN SC SCH ×5 (08:16→23:45)
[2019-11-30] MEDS: GABAPENTIN 100 MG CAP PO SCH ×3 (09:03→20:30)
--- NOTE | 2019-11-30 09:06 | Pain Management Consultation ---
Date of Consultation November 30, 2019 Assessment & Plan (1) Intractable back pain: Patient is not a candidate at this time for surgical intervention due to hyperglycemia. She is not a candidate at this time for an epidural injection due to hyperglycemia and current urinary tract infection. She will be placed on Gabapentin 100mg TID to diminish neuropathic pain in the left leg. May consider increasing to 300mg TID tomorrow if tolerated. She can be seen on an outpatient basis to receive an epidural steroid injection should UTI be treated and hyperglycemia be controlled. Thank you for the consultation History of Present Illness Attending Physician: Lora Cummings MD History of Present Illness This is a 69-year-old female has been admitted to the [facility] for intractable back pain as well as hyperglycemia. Patient describes a sharp stabbing pain along the low back and along the left anterior leg to the foot. No aggravating or alleviating symptoms. She has previously tried oral steroids as well as muscle relaxer without relief. She is reporting significant limitations into performing her daily activities due to the pain. There is difficulty sleeping and concentrating. She feels like her leg is slightly weaker and slightly unbalanced. She denies any bowel/bladder incontinence, saddle anesthesia, foot drop, or falls. Case discussed with Dr. Zee Perez Allergies Allergy/AdvReac Type Severity Reaction Status Date / Time Penicillins Allergy Hives Unverified 11/28/19 13:46 Home Medications Home Medications Medication Instructions Recorded Confirmed Type No Known Home Medications 11/28/19 11/28/19 History Pain History Pain Location Full Body Front + Back: 1. 2. Patient History Medical History DM type 2 (diabetes mellitus, type 2) Hypothyroidism Surgical History History of cholecystectomy Family History Father Diabetes Brother Diabetes Brother Diabetes Social History Smoking Status: Former smoker Cigarettes Per Day: 2; Smoking End Date: 2 weeks ago; Second Hand Exposure: No; Do You Dip or Chew Tobacco: No; Tobacco Cessation Education Requested by Patient: Yes Hx Alcohol Use: No Hx Substance Use: No Communication Ability: Effective Beliefs That Will Affect Care: None marital status: Current Living Situation: Family Other Information That Helps Us Care for You: No Feels Safe at Home: Hesitant to Answer Safety Concerns: Feels Safe At This Time, Afraid for Self and Afraid for Others in Home Assistive Devices: Cane Physical Exam Physical Exam: GENERAL: Speech and cognition is intact. Mood and affect is appropriate. Appears to be in moderate pain while laying in the hospital bed. HEAD: Normocephalic; atraumatic. EYES: No conjunctival injection. EOM intact. ENT: No external ear discharge or lesions. No rhinorrhea or epistaxis. Moist oral mucosa. CHEST: Regular chest respiration and excursion. EXTREMITIES: 5/5 strength of the bilateral lower extremities. Positive straight leg raise on the left, negative on the right. BACK: Full ROM. Mild tenderness along the L5 region as well as the left SI joint. No myofascial spasm. NEURO: CN II-XII grossly intact with no focal deficits noted. SKIN: No lesions, erythema, or rashes noted. Results ([facility]) Diagnostic Review MRI Findings: LUMBAR SPINE MRI WITH AND WITHOUT CONTRAST HISTORY: intractable back pain, left leg weakness TECHNIQUE: Multiplanar multisequence MRI of the lumbar spine was performed both before and after the intravenous administration of contrast. COMPARISON: None. FINDINGS: For the purpose of the report the L5-S1 disc space will be located on axial image 23 of 25. Mild levoscoliosis. No fracture or subluxation. Mild disc space narrowing at L4- L5 and severe disc space narrowing at L5-S1. Moderate facet degenerative changes L5-S1. Mild facet degenerative changes at L3-L4 and L4-L5. Paraspinal soft tissues are unremarkable. No abnormal enhancement identified. The conus terminates at the L1-L2 disc space level. L1-L2: Tiny broad-based posterior disc bulge without significant central canal or neural foraminal narrowing. L2-L3: No significant central canal or neural foraminal narrowing. L3-L4: Tiny broad-based posterior disc bulge asymmetric to the left resulting in mild left-sided neural foraminal narrowing. This abuts the exiting left L3 nerve root at this level. No significant right-sided neural foraminal narrowing or central canal narrowing. L4-L5: Small broad-based posterior disc bulge with a small right paracentral focal disc protrusion. This abuts and slightly displaces the transiting right L5 nerve root. There is also moderate right neural foraminal narrowing. Mild central canal narrowing is also noted. The right paracentral disc protrusion measures 14 x 5 mm and is best seen on axial image 19. L5-S1: Small broad-based posterior disc osteophyte complex asymmetric to the left with bilateral facet hypertrophy resulting in severe left-sided neural foraminal narrowing with impingement of the exiting left L5 nerve root. No significant central canal or right-sided neural foraminal narrowing. IMPRESSION: 1. Small right paracentral focal disc protrusion at L4-L5 which abuts and slightly displaces the transiting right L5 nerve root. There is also moderate right neural foraminal narrowing. 2. Small broad-based posterior disc osteophyte complex asymmetric to the left with bilateral facet hypertrophy resulting in severe left-sided neural foraminal narrowing with impingement of the exiting left L5 nerve root. 3. Additional degenerative changes as described above. ACT 112: Negative or not required by law. Electronically signed by: Emanuel Mckee M.D. 11/29/2019 8:14 AM
--- NOTE | 2019-11-30 12:19 | Hospitalist Progress Note ---
Date of Service November 30, 2019 Assessment & Plan (1) Intractable back pain: (1) Intractable back pain: Per admitting service notes: -Patient sent to ED by referral of [facility] office for evaluation of intractable back pain and hyperglycemia -Patient has not seen a medical provider in over 1 year and also self stopped all of her home medications -CT lumbar spine 10/30/[address] [facility]: Mild degenerative changes of the spine worst at L4-S1 where there is anterior vertebral interspace narrowing, endplate degenerative changes and facet arthropathy. There is moderate central canal and bilateral foraminal narrowing at L4-L5 and mild bilateral foraminal narrowing at L5-S1 -Lumbar spine MRI: 1. Small right paracentral focal disc protrusion at L4-L5 which abuts and slightly displaces the transiting right L5 nerve root. There is also moderate right neural foraminal narrowing. 2. Small broad-based posterior disc osteophyte complex asymmetric to the left with bilateral facet hypertrophy resulting in severe left-sided neural foraminal narrowing with impingement of the exiting left L5 nerve root. 3. Additional degenerative changes as described above. -Spine Ortho consult: Recommending pain management, PT/OT and outpatient follow up -Pain management recommendations noted. Continue gabapentin -PT/OT evaluation noted (2) Uncontrolled type 2 diabetes mellitus possible HHS Per admitting service notes -Patient self stopped home medications including insulin about 1 year ago -Presented with glucose 774, no signs of DKA A1c 16.4 Currently on insulin drip Will need long acting insulin and meal time on discharge DM education provided (3) Elevated alkaline phosphatase level: Alk phos noted to be 536, remainder LFTs WNL RUQ US: 1. Ultrasonographically normal pancreas and liver 2. Surgically absent gallbladder 3. No ductal dilatation. There were 2 nonspecific small echogenic foci within the common hepatic/bile duct. It is unclear whether these were real or artifactual. -Check LFT (4) Weight loss: Severe malnutrition -Patient reports a 20 pound weight loss in the past 1 month -Uncontrolled diabetes likely contributing -Patient does not seem to be up-to-date with routine screening colonoscopy and mammogram -recommend these as an outpatient (5) Hyponatremia: Pseudohyponatremia in the setting of severe hyperglycemia -Corrected sodium then was 140 (6) Hyperkalemia: -Resolved Monitor (7) Urinary tract infection: Urine culture: E. coli Continue ceftriaxone IV (8)Elevated TSH TSH 11.7, normal free T4 1.0 ?Elevated TSH due to acute illness -Check thyroid function test in 4 to 6 weeks (9) Pulmonary nodules: -Noted on CT report from [facility] -Small nodules in the lung bases -will need close outpatient follow-up given patient's smoking history (10) DVT prophylaxis: -SQ heparin Disposition Lives at home PT OT evaluation noted Admission and Anticipated Discharge Date Admission Date: November 28, 2019 Subjective Patient seen and examined Reports back pain radiating to legs is much better today Stated that gabapentin helped with pain control Denied any fevers, chills, nausea,vomiting Denied any leg weakness and incontinence at this time Denied any hematuria, dysuria, freq Denied any abd pain, constipation, diarrhea Physical Exam Constitutional: + cachectic Eyes: PERRL, conjunctivae normal, anicteric sclerae ENMT: external ear and nose normal, oropharynx normal Respiratory: normal respiratory effort, lungs clear to auscultation Cardiovascular: RRR, no murmur, no edema Gastrointestinal (Abdomen): normal bowel sounds, soft, nontender, no hepatosplenomegaly Musculoskeletal: no cyanosis or clubbing, extremities motor strength 5/5 Neurologic: PERRL, EOMI, accommodation nl, no face palsy, no dysarthria Psychiatric: A+Ox3, euthymic affect Results & Data Results & Data ([facility]) Vital Signs (Past 12 Hours) Vital Signs Temp Pulse Resp BP Pulse Ox 11/30/19 07:55 36.6 C 84 18 156/84 H 95 Laboratory Results Laboratory Results - last 24 hr 11/29/19 11/29/19 11/29/19 15:07 16:07 17:04 POC Glucose 261 H 258 H 214 H 11/29/19 11/29/19 11/29/19 18:05 19:04 20:04 POC Glucose 282 H 280 H 251 H 11/29/19 11/29/19 11/29/19 21:06 22:08 23:07 POC Glucose 230 H 201 H 159 H 11/30/19 11/30/19 11/30/19 00:10 01:10 01:53 POC Glucose 144 H 115 H 112 H 11/30/19 11/30/19 11/30/19 04:21 05:08 06:05 POC Glucose 93 106 H 98 11/30/19 11/30/19 11/30/19 07:08 08:05 09:08 POC Glucose 137 H 154 H 166 H 11/30/19 11/30/19 10:05 11:59 POC Glucose 172 H 158 H
--- NOTE | 2019-11-30 13:18 | Pharmacy Report ---
Pharmacy Glycemic Short Note 2 - Date of Service November 30, 2019 - Glycemic Short BSG Results (Last 24 hours): 11/29/19 11/29/19 11/29/19 14:04 15:07 16:07 POC Glucose 287 H 261 H 258 H 11/29/19 11/29/19 11/29/19 17:04 18:05 19:04 POC Glucose 214 H 282 H 280 H 11/29/19 11/29/19 11/29/19 20:04 21:06 22:08 POC Glucose 251 H 230 H 201 H 11/29/19 11/30/19 11/30/19 23:07 00:10 01:10 POC Glucose 159 H 144 H 115 H 11/30/19 11/30/19 11/30/19 01:53 04:21 05:08 POC Glucose 112 H 93 106 H 11/30/19 11/30/19 11/30/19 06:05 07:08 08:05 POC Glucose 98 137 H 154 H 11/30/19 11/30/19 11/30/19 09:08 10:05 11:59 POC Glucose 166 H 172 H 158 H Outpatient Anti-diabetic Regimen: * N/A - patient has not had established primary care in several years * Patient reports to previously taking insulin * Per outpatient fill history - recently filled prednisone taper * A1c significantly elevated to 16.4% on 11/28/19 Risk Factors for Insulin Resistance: * Infection: Ceftriaxone 1 g IV q24h - UTI * Diet: T2DM ASSESSMENT: 11/29: * Patient continues on insulin drip this AM - 1.4 units/hr is current rate * Had received insulin gtt + 18 units basal + 10 correctional insulin - estimated needs close to ~60 units daily * Ordered basal insulin this AM, opted to increase dosing to help with drip transition and dose more 50/50 split * Plan to have set CR with drip to roof cement and paint maker helper in transition / plan to d/c drip this afternoon PLAN FOR INPATIENT GLYCEMIC CONTROL: * Basal insulin * Lantus 25 x 1 this AM / overlap with insulin drip * Bolus insulin * NovoLog per scale ACHS * CF 30 / CR 12 PLAN FOR DISCHARGE: * A1c of ~16.4% on admission - goal <7% * Patient would benefit from addition of basal/bolus insulin to help with glycemic management on discharge. Would recommend addition of 15-20 units daily of Lantus and Novolog 5-8 units TIDM * Feel that patient is insulin resistant/may be related to infection. Therefore close monitoring outpatient is needed as regimen will likely need titrated/adjusted * Will continue to follow and provide further recommendations if insulin needs change
[2019-11-30 15:13] LABS: Alanine Aminotransferase 34 U/L (12-78); Albumin Level 2.2 gm/dl (3.4-5.0); Alkaline Phosphatase 397 U/L (45-117); Aspartate Aminotransferase 31 U/L (15-37); BUN Creatinine Ratio 20.7 (10-20); Bilirubin Direct < 0.1 mg/dl (0-0.2); Bilirubin,Total 0.2 mg/dl (0.2-1); Blood Urea Nitrogen 10 mg/dl (7-18); Calcium 8.1 mg/dl (8.5-10.1); Carbon Dioxide 23 mmol/L (21-32); Chloride 98 mmol/L (98-107); Creatinine Clr Calc Pharmacy 84.4 ml/min; Est GFR (African American) 118.5; Est GFR (Non-African American) 102.2; Glucose 132 mg/dl (70-99); Potassium 3.4 mmol/L (3.5-5.1); Sodium 129 mmol/L (136-145); Total Protein 5.8 gm/dl (6.4-8.2)
[2019-11-30] MEDS: cefTRIAXone SODIUM 1,000 MG in DEXTROSE 5% 50 ML IV SCH (15:50)
[2019-12-01] MEDS: ACETAMINOPHEN 325 MG TAB PO SCH ×2 (06:17→13:38)
[2019-12-01] MEDS: INSULIN ASPART 100 UNITS/ML 3 ML PEN SC SCH ×3 (06:21→13:22)
[2019-12-01 06:55] LABS: Hematocrit (blood only) 39.1 % (37-47); Hemoglobin 13.4 g/dL (12.0-16.0); Mean Corpuscular Hemoglobin 28.2 pg (25-34); Mean Corpuscular Hgb Conc 34.3 g/dL (32-36); Mean Corpuscular Volume 82.3 fL (80-100); Mean Platelet Volume 9.6 fL (7.4-10.4); Platelet Count 250 K/uL (130-400); RDW Coefficient of Variation 16.1 % (11.5-14.5); RDW Standard Deviation 48.6 fL (36.4-46.3); Red Blood Count 4.75 M/uL (4.2-5.4); White Blood Count 6.74 K/uL (4.8-10.8)
[2019-12-01 07:24] LABS: BUN Creatinine Ratio 19.8 (10-20); Calcium 8.5 mg/dl (8.5-10.1); Creatinine Clr Calc Pharmacy 90.3 ml/min; Est GFR (African American) 121.1; Est GFR (Non-African American) 104.5; Potassium 3.6 mmol/L (3.5-5.1)
[2019-12-01] MEDS: GABAPENTIN 100 MG CAP PO SCH ×2 (08:32→13:38)
[2019-12-01] MEDS: HEPARIN SOD 5,000 UNIT/0.5 ML VIAL SQ SCH (08:45)
[2019-12-01] MEDS ORDERED: INSULIN GLARGINE SOLOSTAR 100 UNITS/ML 3 ML PEN SC SCH (09:00)
--- NOTE | 2019-12-01 10:05 | Pharmacy Report ---
Pharmacy Glycemic Short Note 2 - Date of Service December 01, 2019 - Glycemic Short BSG Results (Last 24 hours): 11/30/19 11/30/19 11/30/19 10:05 11:59 14:25 Glucose 132 H POC Glucose 172 H 158 H 11/30/19 11/30/19 11/30/19 16:43 20:26 23:44 Glucose POC Glucose 136 H 179 H 142 H 12/01/19 12/01/19 12/01/19 04:13 06:26 07:29 Glucose 144 H POC Glucose 126 H 191 H Outpatient Anti-diabetic Regimen: * N/A - patient has not had established primary care in several years * Patient reports to previously taking insulin * Per outpatient fill history - recently filled prednisone taper * A1c significantly elevated to 16.4% on 11/28/19 Risk Factors for Insulin Resistance: * Infection: Ceftriaxone 1 g IV q24h - UTI * Diet: T2DM ASSESSMENT: 11/30: * Patient received total of 25 units of basal + 11 units correctional + insulin drip for part of day. Estimated ~50 units * Plan to continue with 25 units of basal insulin this AM - fasting 191 mg/dL * Plan to tighten CR this AM 11/29: * Patient continues on insulin drip this AM - 1.4 units/hr is current rate * Had received insulin gtt + 18 units basal + 10 correctional insulin - estimated needs close to ~60 units daily * Ordered basal insulin this AM, opted to increase dosing to help with drip transition and dose more 50/50 split * Plan to have set CR with drip to spray painter helper in transition / plan to d/c drip this afternoon PLAN FOR INPATIENT GLYCEMIC CONTROL: * Basal insulin * Lantus 20-25 units daily based upon BSG (will receive 25 units today) * Bolus insulin * NovoLog per scale ACHS * CF 30 / CR 10 PLAN FOR DISCHARGE: * A1c of ~16.4% on admission - goal <7% * Patient would benefit from addition of basal/bolus insulin to help with glycemic management on discharge. Would recommend addition of 20-25 units daily of Lantus and Novolog 5-8 units TIDM. * Feel that patient is insulin resistant/may be related to infection. Therefore close monitoring outpatient is needed as regimen will likely need titrated/adjusted. Could consider addition of sliding scale coverage, but this could be started later outpatient * Will continue to follow and provide further recommendations if insulin needs change
[2019-12-01] MEDS ORDERED: GABAPENTIN 300 MG CAP PO SCH (14:01)
--- NOTE | 2019-12-01 14:15 | Discharge Summary ---
Date of Service December 01, 2019 Admission HPI Per Admitting Provider 69-year-old female with PMH DM type II who was sent to the ED from [facility] office for evaluation of intractable back pain and hyperglycemia. Patient reports she has not seen a medical provider in over 1 year and self stopped all of her home medications. Patient is a poor historian. Patient was seen at [facility] about 1 month ago for intractable back pain. She was given Flexeril. Symptoms not improve and patient was seen at [facility] office about 2 weeks ago and was given steroid taper and baclofen. Symptoms still persisted and she was seen in the office again today. Blood sugar was found to be over 600 and there was also some concern for left leg weakness associated with the back pain so patient was sent to the ED for further evaluation. Patient reports her pain is mostly located in the left lower back and radiates into the hip. She reports her left leg feels numbness and tingling at times. Reports ambulation has been difficult due to the pain. She has had some urinary incontinence however feels as though that is due to ambulatory dysfunction from severe pain. Denies dysuria. No other recent illnesses, fevers, chills. She denies chest pain shortness of breath. No lightheadedness, dizziness, diaphoresis, syncopal events. Report her appetite has been very poor and she has lost about 20 pounds over the past 1 month. Denies abdominal pain, nausea, vomiting, diarrhea. In the ED, initial glucose is found to be 774. Does not appear to be in DKA. UA suggest UTI. Patient was given IV ceftriaxone, 10 units insulin IV, morphine 4 mg IV, Zofran, and IVF. Principal Diagnosis Intractable back pain Sciatica Poorly controlled Diabetes mellitus Discharge Exam Constitutional + cachectic Eyes PERRL, conjunctivae normal, anicteric sclerae ENMT external ear and nose normal, oropharynx normal Respiratory normal respiratory effort, lungs clear to auscultation Cardiovascular RRR, no murmur, no edema Gastrointestinal (Abdomen) normal bowel sounds, soft, nontender, no hepatosplenomegaly Musculoskeletal no cyanosis or clubbing, extremities motor strength 5/5 Neurologic PERRL, EOMI, accommodation nl, no face palsy, no dysarthria Psychiatric A+Ox3, euthymic affect Discharge Data Allergies Allergy/AdvReac Type Severity Reaction Status Date / Time Penicillins Allergy Hives Unverified 11/28/19 13:46 Consultations 11/28/19 15:26 ED Decision to Admit Stat 11/28/19 18:13 Consult Case Management - Discharge Planning Routine 11/29/19 10:10 Consult Orthopedic Surgery Routine 11/29/19 20:24 Consult Pain Management Routine Ordered Studies 11/28/19 16:14 US liver Routine The pancreas appears sonographically normal. The liver appears sonographically normal. The gallbladder was surgically absent There is no ductal dilatation. The common bile duct measures 6 mm. There were 2 nonspecific echogenic foci within the common hepatic/bile duct. There is no evidence of right-sided hydronephrosis IMPRESSION: 1. Ultrasonographically normal pancreas and liver 2. Surgically absent gallbladder 3. No ductal dilatation. There were 2 nonspecific small echogenic foci within the common hepatic/bile duct. It is unclear whether these were real or artifactual. 11/29/19 06:05 MR lumbar spine wo/w con Urgent For the purpose of the report the L5-S1 disc space will be located on axial image 23 of 25. Mild levoscoliosis. No fracture or subluxation. Mild disc space narrowing at L4- L5 and severe disc space narrowing at L5-S1. Moderate facet degenerative changes L5-S1. Mild facet degenerative changes at L3-L4 and L4-L5. Paraspinal soft tissues are unremarkable. No abnormal enhancement identified. The conus terminates at the L1-L2 disc space level. L1-L2: Tiny broad-based posterior disc bulge without significant central canal or neural foraminal narrowing. L2-L3: No significant central canal or neural foraminal narrowing. L3-L4: Tiny broad-based posterior disc bulge asymmetric to the left resulting in mild left-sided neural foraminal narrowing. This abuts the exiting left L3 nerve root at this level. No significant right-sided neural foraminal narrowing or central canal narrowing. L4-L5: Small broad-based posterior disc bulge with a small right paracentral focal disc protrusion. This abuts and slightly displaces the transiting right L5 nerve root. There is also moderate right neural foraminal narrowing. Mild central canal narrowing is also noted. The right paracentral disc protrusion measures 14 x 5 mm and is best seen on axial image 19. L5-S1: Small broad-based posterior disc osteophyte complex asymmetric to the left with bilateral facet hypertrophy resulting in severe left-sided neural foraminal narrowing with impingement of the exiting left L5 nerve root. No significant central canal or right-sided neural foraminal narrowing. IMPRESSION: 1. Small right paracentral focal disc protrusion at L4-L5 which abuts and slightly displaces the transiting right L5 nerve root. There is also moderate right neural foraminal narrowing. 2. Small broad-based posterior disc osteophyte complex asymmetric to the left with bilateral facet hypertrophy resulting in severe left-sided neural foraminal narrowing with impingement of the exiting left L5 nerve root. 3. Additional degenerative changes as described above. Hospital Course (1) Intractable back pain: (1) Intractable back pain: Per admitting service notes: -Patient sent to ED by referral of [facility] office for evaluation of intractable back pain and hyperglycemia -Patient has not seen a medical provider in over 1 year and also self stopped all of her home medications -CT lumbar spine 10/30/2019 performed at [facility]: Mild degenerative changes of the spine worst at L4-S1 where there is anterior vertebral interspace narrowing, endplate degenerative changes and facet arthropathy. There is moderate central canal and bilateral foraminal narrowing at L4-L5 and mild bilateral foraminal narrowing at L5-S1 -Lumbar spine MRI: 1. Small right paracentral focal disc protrusion at L4-L5 which abuts and slightly displaces the transiting right L5 nerve root. There is also moderate right neural foraminal narrowing. 2. Small broad-based posterior disc osteophyte complex asymmetric to the left with bilateral facet hypertrophy resulting in severe left-sided neural foraminal narrowing with impingement of the exiting left L5 nerve root. 3. Additional degenerative changes as described above. -Spine Ortho consult: Recommended pain management, PT/OT and outpatient follow up -Was evaluated by Pain management and started on gabapentin. Patient tolerating it well. Stated pain is well controlled on gabapentin Dose increased to 300mg TID per Pain management recommendations. Patient is to follow up with pain management outpatient (2) Uncontrolled type 2 diabetes mellitus possible HHS Per admitting service notes -Patient self stopped home medications including insulin about 1 year ago -Presented with glucose 774, no signs of DKA A1c 16.4 Required insulin drip initially for glycemic control Transitioned to subcutaneous insulin DM education provided Discharged on lantus and novolog. Will follow up with [facility] for glycemic management. Diabetic supplies provided (3) Elevated alkaline phosphatase level: Alk phos noted to be 536, remainder LFTs WNL RUQ US: 1. Ultrasonographically normal pancreas and liver 2. Surgically absent gallbladder 3. No ductal dilatation. There were 2 nonspecific small echogenic foci within the common hepatic/bile duct. It is unclear whether these were real or a rtifactual. (4) Weight loss: Severe malnutrition -Patient reports a 20 pound weight loss in the past 1 month -Uncontrolled diabetes likely contributing -Patient does not seem to be up-to-date with routine screening colonoscopy and mammogram -Recommend these as an outpatient (5) Hyponatremia: Pseudohyponatremia in the setting of severe hyperglycemia -Corrected sodium then was 140 (6) Hyperkalemia: -Resolved Monitor (7) Urinary tract infection: Urine culture: E. coli, pansensitive Treated with iv ceftriaxone. Changed to po cefdinir to complete treatment (8)Elevated TSH TSH 11.7, normal free T4 1.0 ?Elevated TSH due to acute illness -Check thyroid function test in 4 to 6 weeks (9) Pulmonary nodules: -Noted on CT report from [facility] -Small nodules in the lung bases -will need close outpatient follow-up given patient's smoking history Total Time Total Time Spent Total Time Spent (In Minutes): 50 Total Time Includes: Examination of the Patient, Discharge Planning, Medication Reconciliation and Communication With Other Providers Discharge Plan Discharge Items Patient Disposition: Home - Home Health Services Reason For Visit: BACK PAIN, HYPERGLYCEMIA Discharge Diagnosis: Poorly controlled diabetes mellitus Sciatica. Intractable back pain Severe malnutrition Urinary tract infection Condition on Discharge: Good Activity: Resume your previous activity Non-emergency contact: Primary Care Provider and Pain Management Call non-emergency contact if: you have any medication questions and your symptoms worsen Follow-up/Referrals: Zee Perez DO [Physician] - 12/07/19 10:45 am Shimon Olea MD [Outside Practitioners] - 12/05/19 1:00 pm (Date & Time 12/05/2019 1:00 PM Provider Pelon Olea MD Department Internal Medicine [facility] ) Diet: Carb Consistent or DM2 and Heart Healthy Addtl Attending Provider Instructions: Ms Reid. You came to the hospital complaining of intractable low back pain. You had not seen a doctor in a long time and had stopped taking medications. You were evaluated and started on pain regimen. Your pain is well controlled now Your diabetes was very poorly controlled. You were started on insulin and provided diabetes education. Your insulin regimen has been sent to your pharmacy. Please follow up with MTM for diabetes management. You were started on gabapentin for neuropathic pain. Please follow up with Pain management in the office. It is very important that you follow up with your Primary Doctor. Please repeat thyroid function test by your Primary doctor in 4-6 weeks Please complete antibiotic for 4 days for your urinary tract infection It was a pleasure taking care of you Pending Studies at Discharge: No Stand-Alone Forms: My [facility] [employer], Smoking Cessation Medications and DC Order Prescriptions: New acetaminophen 325 mg Tablet 650 mg PO Q4H PRN (Reason: pain) Qty: 50 RF: 0 gabapentin 300 mg Capsule 300 mg PO TID 30 Days Qty: 90 RF: 0 insulin aspart U-100 [Novolog Flexpen U-100 Insulin] 100 unit/mL (3 mL) Insulin Pen 5 unit SC AC Qty: 15 RF: 0 Lantus Solostar U-100 Insulin 100 unit/mL (3 mL) Insulin Pen 25 unit SC DAILY Qty: 15 RF: 0 cefdinir 300 mg capsule 300 mg PO BID 5 Days Qty: 10 RF: 0 (DME) OneTouch Verio test strips Strip See Rx Instructions .ROUTE .MEDSUPPLY Qty: 100 RF: 0 (DME) lancets [OneTouch Delica Lancets] 33 gauge misc See Rx Instructions .ROUTE .MEDSUPPLY Qty: 100 RF: 0 Discharge Orders: Discharge Order (Routine); Ordered 12/01/19 Ordered By: Lora Mckinnon/Other Patient Handouts: High Blood Sugar (Hyperglycemia), Hypoglycemia (Low Blood Sugar), Managing Type 2 Diabetes, Insulin How to Use and Where to Inject, Understanding Type 2 Diabetes Admission Data Admit Date/Time: 11/28/19 16:08 Attending Provider: Lora Cummings I. Admit Provider: Terry Collins Primary Care Provider: PCP,NO Other Providers: Terry Collins ; Arie Velazco ; Minesh Tsai ; Michael Castillo Other Interventions: Discharge Summary Assessment (RN) Last Done: 12/01/19 14:24
[2019-12-01] MEDS: cefTRIAXone SODIUM 1,000 MG in DEXTROSE 5% 50 ML IV SCH (15:44)
== END 2019-12-01 16:01 | disposition home health service (06) | DRG 551 ==
LOC: ED 12:53 → SUATTDRO 16:08 → 2W 16:08 → 3N 12-01 10:52

== ENCOUNTER 2024-02-01 22:22 | Inpatient (IN) ==
[2024-02-01 23:49] LABS: Basophils # (auto) 0.01 K/uL (0.00-0.20); Basophils % (auto) 0.1 %; Hematocrit (blood only) 38.6 % (37.0-47.0); Hemoglobin 12.1 g/dl (12.0-16.0); Immature Granulocytes # (auto) 0.06 K/uL (0.01-0.20); Immature Granulocytes % (auto) 0.7 %; Lymphocytes # (auto) 0.72 K/uL (1.20-3.40); Lymphocytes % (auto) 8.5 %; Mean Corpuscular Hemoglobin 25.2 pg (25.0-34.0); Mean Corpuscular Hgb Conc 31.3 g/dL (32.0-36.0); Mean Corpuscular Volume 80.4 fL (80.0-100.0); Mean Platelet Volume 9.5 fL (9.4-12.4); Monocytes # (auto) 0.23 K/uL (0.11-0.59); Monocytes % (auto) 2.7 %; Neutrophils # (auto) 7.41 K/uL (1.40-6.50); Platelet Count 353 K/uL (130-400); White Blood Count 8.43 K/ul (4.8-10.8)
--- NOTE | 2024-02-02 00:03 | Emergency Department Note ---
Impression & Plan Back pain ED Provider Note NAME: DIMAS SAMANO AGE: 73 SEX: Female INFORMANT: Patient ED PROVIDER(S): Emiliano Us MD CHIEF COMPLAINT: Back pain PLAN: Disposition: Admitted Outpatient prescription management: none Referral: None MEDICAL DECISION MAKING: Patient presented because of intractable back pain. IV was established and workup was initiated. Her CBC and chemistries were unremarkable except for hyperglycemia. Patient was given IV insulin. She was also treated with IV Dilaudid. She was feeling better on reassessment. I did obtain her MRI reports from [facility] done today and her lumbar MRI was revealing degenerative changes without significant findings. Patient appeared to have multiple compression fractures throughout the thoracic spine with 2 being around 40%. Suspect that this is the root cause of her pain as it is in the same area. Given the patient's inability to handle this at home despite having prescription analgesia discussed further management in the hospital and she and family were in agreement. [facility] Patient was evaluated in the ER admitted for further management. Care/management discussed with: manager commercial real estate Level of care consideration(s): After review of the information above and other included data, I feel the patient requires escalation of care to admission Triage Nursing notes: reviewed and agree them. Vital Signs: reviewed and remarkable for no significant abnormalities Additional History obtained from: Patient's son. Noted that she is having significant difficulty getting around due to the pain. Chronic Medical/Social Conditions affecting care: Diabetes Prior/ Outside/ External records reviewed: Prior MR imaging reviewed. Thoracic compression fractures noted. Differential Diagnosis: Musculoskeletal, disc herniation, fracture, metastatic disease, cord compression, discitis, sciatica, cauda equina, infection, aortic disease, renal colic, gastrointestinal, as well as other pathologies. Diagnostics, independently interpreted by me: ECG: Twelve-lead ECG reveals no sinus rhythm at 83 bpm. Left axis deviation. No ST elevation or depression. Cardiac Monitoring: Cardiac monitoring ordered by me: The patient was placed on continuous cardiac monitoring and observed. It revealed a normal sinus rhythm at 74 beats per minute without ectopy or evidence of dysrhythmia. Medical decision rules: none Imaging studies: Chest x-ray negative for pneumothorax. There is some prominent interstitial markings present without lobar infiltrate. HPI: 73 year old Female arrives for evaluation of back pain. This started 3 weeks ago and is worsening. The patient also notes the following associated symptoms, leg numbness and weakness. The patient has been prescribed oxycodone and muscle relaxers for relieving factors. Current pain is rated as 10/10. Pt denies LOC, headache, fevers, chills, diaphoresis, visual changes, neck pain, chest pain, breathing difficulties, nausea, vomiting, abdominal pain, melena, hematochezia, urinary symptoms, lymphadenopathy, rash, or other complaints. . PAST MEDICAL HISTORY: See Below, DM, hypothyroidism PAST SURGICAL HISTORY: See Below, SOCIAL HISTORY: See Below, quit smoking HOME MEDICATIONS: See Below ALLERGIES: See Below VITALS: See Below PHYSICAL EXAMINATION: GENERAL: Awake, alert, uncomfortable-appearing, in no distress HENT: Normocephalic, atraumatic. Oropharynx unremarkable. EYES: Normal conjunctiva. Sclera non-icteric. NECK: Inspection normal. Non-tender. Supple. No nuchal rigidity. FROM. No masses. RESPIRATORY: Clear to auscultation. No wheezes. No rales. Normal respiratory effort. CARDIAC: Normal rate. Normal rhythm. No murmurs. No rubs. Extremities warm and well perfused. Pulses equal. No JVD. GI: Soft, non-distended. No tenderness to palpation. No rebound or guarding. No masses. RECTAL: Deferred. MUSCULOSKELETAL: Atraumatic. Chest examination reveals no tenderness. The back is symmetrical on inspection without obvious abnormality. There is no CVA tenderness to palpation. No joint edema. LOWER EXTREMITIES: Calves are equal size bilaterally and non-tender. No edema. No discoloration. NEURO: Normal sensorium. No sensory or motor deficits noted. SKIN: No rash or jaundice noted. PROCEDURES: none CRITICAL CARE: none OBSERVATION NOTE: none Past Med/Surg History Problem List (Updated 02/02/24 @ 00:03 by Emiliano Us MD) Back pain (Acute) Low back pain (Acute) Acute thoracic back pain (Acute) Hyperkalemia Hyponatremia Weight loss Elevated alkaline phosphatase level Pulmonary nodules DVT prophylaxis Intractable back pain Uncontrolled type 2 diabetes mellitus (Acute) Left sided sciatica (Acute) Urinary tract infection (Acute) Hypothyroidism DM type 2 (diabetes mellitus, type 2) Surgical History History of cholecystectomy Family History Father Diabetes Brother Diabetes Brother Diabetes Social History Smoking Status: Former smoker Tobacco Type: Cigarettes Cigarettes Per Day: 2; Second Hand Exposure: No; Do You Dip or Chew Tobacco: No; Tobacco Cessation Education Requested by Patient: No Hx Alcohol Use: No Hx Substance Use: No Preferred Language: Icelandic Communication Ability: Effective Patient Admitting Clerk Required: No Beliefs That Will Affect Care: None marital status: Current Living Situation: Family Current Living Situation Comment: home with daughter Other Information That Helps Us Care for You: No Feels Safe at Home: Yes Safety Concerns: Feels Safe At This Time Assistive Devices: Cane and Walker Allergies Allergies Allergy/AdvReac Type Severity Reaction Status Date / Time Penicillins Allergy Hives Verified 02/02/24 02:06 Home Meds Home Medications Medication Instructions Recorded Confirmed baclofen 20 mg tablet 20 mg PO TID 02/02/24 02/02/24 gabapentin 300 mg capsule 300 mg PO TID 02/02/24 02/02/24 insulin glargine 100 unit/mL (3 10 unit subcut DAILY 02/02/24 02/02/24 mL) subcutaneous pen (Basaglar KwikPen U-100 Insulin) sertraline 25 mg tablet 25 mg PO DAILY 02/02/24 02/02/24 Previous Rx's Medication Instructions Recorded blood sugar diagnostic (OneTouch #100 ea 12/01/19 Verio test strips) lancets 33 gauge (OneTouch Delica #100 ea 12/01/19 Lancets) Results & Data (ED) Vital Signs Vital Signs - 24 hr 02/01/24 22:29 02/01/24 23:23 02/01/24 23:29 Temperature 36.5 C Temperature Source Temporal Artery Scan Pulse Rate 110 H 86 Respiratory Rate 18 Respiratory Effort / Characteristics Non-Labored Respiratory Depth Normal Respiratory Pattern Regular Blood Pressure 161/79 H Blood Pressure Mean 106 Pulse Oximetry 94 97 Oxygen Delivery Method Room Air Room Air Sepsis Recent Fever Within 48 Hours No Sepsis New/Unexplained Change in Mental Status N/A Sepsis Action Taken by Nursing No Action Required 02/01/24 23:33 02/02/24 00:00 02/02/24 00:30 Temperature Temperature Source Pulse Rate 87 93 H 78 Respiratory Rate 20 20 18 Respiratory Effort / Characteristics Respiratory Depth Respiratory Pattern Blood Pressure 167/97 H 176/83 H 153/106 H Blood Pressure Mean 120 114 115 Pulse Oximetry 95 95 94 Oxygen Delivery Method Room Air Room Air Room Air Sepsis Recent Fever Within 48 Hours Sepsis New/Unexplained Change in Mental Status Sepsis Action Taken by Nursing 02/02/24 01:30 Temperature Temperature Source Pulse Rate 77 Respiratory Rate 20 Respiratory Effort / Characteristics Respiratory Depth Respiratory Pattern Blood Pressure 146/101 H Blood Pressure Mean 131 Pulse Oximetry 96 Oxygen Delivery Method Room Air Sepsis Recent Fever Within 48 Hours Sepsis New/Unexplained Change in Mental Status Sepsis Action Taken by Nursing Laboratory Data 02/02/24 05:30 02/02/24 05:30 Lab Results 02/01/24 Range/Units 23:24 WBC 8.43 (4.8-10.8) K/ul RBC 4.80 (4.20-5.40) M/uL Hgb 12.1 (12.0-16.0) g/dl Hct 38.6 (37.0-47.0) % MCV 80.4 (80.0-100.0) fL MCH 25.2 (25.0-34.0) pg MCHC 31.3 L (32.0-36.0) g/dL Plt Count 353 (130-400) K/uL MPV 9.5 (9.4-12.4) fL Immature Gran % (Auto) 0.7 % Neut % (Auto) 88.0 % Lymph % (Auto) 8.5 % [place] % (Auto) 2.7 % Eos % (Auto) 0.0 % Baso % (Auto) 0.1 % Neut # (Auto) 7.41 H (1.40-6.50) K/uL Lymph # (Auto) 0.72 L (1.20-3.40) K/uL [place] # (Auto) 0.23 (0.11-0.59) K/uL Eos # (Auto) 0.00 (0.00-0.50) K/uL Baso # (Auto) 0.01 (0.00-0.20) K/uL Immature Gran # (Auto) 0.06 (0.01-0.20) K/uL Hypochromasia Present Anisocytosis Present Rouleaux 1+ Sodium 130 L (136-145) mmol/L Potassium 4.6 (3.5-5.1) mmol/L Chloride 95 L (98-107) mmol/L Carbon Dioxide 24 (21-32) mmol/L Anion Gap 11 (3-11) BUN 23 (6-23) mg/dl Creatinine 0.68 (0.6-1.2) mg/dl Est Cr Clr Drug Dosing 68.5 ml/min eGFR 92.48 BUN/Creatinine Ratio 33.8 H (10-20) Glucose 459 H* (70-99(Fasting)) mg/dl Osmolality 303 H (280-300) mOsm/kg Calcium 8.8 (8.6-10.3) mg/dl Magnesium 2.0 (1.7-2.4) mg/dl Total Bilirubin 0.3 (0.2-1.0) mg/dl AST 13 (13-39) U/L ALT 19 (7-52) U/L Alkaline Phosphatase 147 H (34-104) U/L Total Protein 6.2 (6.0-8.3) gm/dl Albumin 3.9 (3.4-5.0) gm/dl Globulin 2.3 L (2.5-4.0) gm/dl Albumin/Globulin Ratio 1.7 (0.9-2) TSH 3.311 (0.300-4.500) uIu/ml Administered Medications Sodium Chloride (Nss) 1,000 mls @ 50 mls/hr IV .Q20H ONE Stop: 02/02/24 22:07 Last Admin: 02/02/24 02:42 Dose: 50 mls/hr Documented By: KATT Insulin Aspart (Insulin Aspart Per Unit Charge) 0 units SC ACHS [facility] Stop: 03/03/24 03:18 Last Admin: 02/02/24 03:45 Dose: 3 units Documented By: ADILIA Co-signed By: CAMERON Lidocaine (Lidocaine 5% 1 Patch) 1 patch TD QAM [facility] Stop: 03/03/24 02:09 Last Admin: 02/02/24 02:42 Dose: 1 patch Documented By: KATT Oxycodone HCl (Oxycodone Hcl Ir 5 Mg Tab (Immediate Release)) 5 mg PO Q4H PRN PRN Reason: Pain Stop: 02/16/24 01:31 Last Admin: 02/02/24 03:45 Dose: 5 mg Documented By: ADILIA Discontinued Medications Hydromorphone HCl (Hydromorphone Inj 0.5 Mg/0.5 Ml Syr) 0.25 mg IV Q15M PRN PRN Reason: Pain Stop: 02/16/24 00:05 Last Admin: 02/02/24 00:17 Dose: 0.25 mg Documented By: KATT Insulin Glargine (Lantus Per Unit Charge) 20 units SQ NOW STA Stop: 02/02/24 01:47 Last Admin: 02/02/24 02:09 Dose: 20 units Documented By: KATT Co-signed By: DWAIN Insulin Human Regular (Novolin-R Insulin Per Unit Charge) 5 units IV NOW STA Stop: 02/02/24 01:10 Last Admin: 02/02/24 01:22 Dose: 5 units Documented By: KATT Co-signed By: DWAIN Losartan Potassium (Losartan Potassium 25 Mg Tab) 25 mg PO NOW STA Stop: 02/02/24 01:32 Last Admin: 02/02/24 02:10 Dose: 25 mg Documented By: KATT Ondansetron HCl (Ondansetron Inj 2 Mg/Ml 2 Ml Vial) 4 mg IV NOW STA Stop: 02/02/24 00:07 Last Admin: 02/02/24 00:17 Dose: 4 mg Documented By: KATT Imaging Data Radiologist's Impression: Chest X-Ray 02/01/24 23:12 Exam(s): XR CXR 1 VIEW EXAM: XR Chest, 1 View CLINICAL HISTORY: Reason for exam: chest and back. TECHNIQUE: Frontal view of the chest. COMPARISON: No relevant prior studies available. FINDINGS: Lungs: Prominent interstitial markings throughout the lungs, greatest in the right middle lobe. No consolidation. Pleural space: Unremarkable. No pneumothorax. Heart: Unremarkable. No cardiomegaly. Mediastinum: Unremarkable. Normal mediastinal contour. Bones/joints: Old healed distal right clavicle fracture. Upper abdomen: Unremarkable as visualized. No pneumoperitoneum under the diaphragm. IMPRESSION: Prominent interstitial markings throughout the lungs, greatest in the right middle lobe. Likely underlying emphysema with possible right middle lobe infiltrate. Electronically signed by: Ken Alanis MD 02/02/24 01:29 AM Discharge Plan Visit Data Chief Complaint: Back Injury/Pain Stated Complaint: BACK PAIN, SOB, CHEST PAIN ED Provider: Emiliano Us Discharge Problem: Back pain Patient Disposition: Admitted As Inpatient Discharge Instructions Interventions: ED Discharge Assessment Last Done: 02/02/24 03:04
[2024-02-02] MEDS: HYDROmorphone INJ 0.5 MG/0.5 ML SYR IV PRN (00:17)
[2024-02-02] MEDS: ONDANSETRON INJ 2 MG/ML 2 ML VIAL IV STA (00:17)
[2024-02-02 00:57] LABS: Albumin Globulin Ratio 1.7 (0.9-2); Albumin Level 3.9 gm/dl (3.4-5.0); BUN Creatinine Ratio 33.8 (10-20); Bilirubin,Total 0.3 mg/dl (0.2-1.0); Calcium 8.8 mg/dl (8.6-10.3); Creatinine Clr Calc Pharmacy 68.5 ml/min; Globulin 2.3 gm/dl (2.5-4.0); Potassium 4.6 mmol/L (3.5-5.1); Total Protein 6.2 gm/dl (6.0-8.3)
[2024-02-02] MEDS: NovoLIN-R INSULIN PER UNIT CHARGE IV STA (01:22)
--- NOTE | 2024-02-02 01:30 | XRay Report ---
Exam(s): XR CXR 1 VIEW EXAM: XR Chest, 1 View CLINICAL HISTORY: Reason for exam: chest and back. TECHNIQUE: Frontal view of the chest. COMPARISON: No relevant prior studies available. FINDINGS: Lungs: Prominent interstitial markings throughout the lungs, greatest in the right middle lobe. No consolidation. Pleural space: Unremarkable. No pneumothorax. Heart: Unremarkable. No cardiomegaly. Mediastinum: Unremarkable. Normal mediastinal contour. Bones/joints: Old healed distal right clavicle fracture. Upper abdomen: Unremarkable as visualized. No pneumoperitoneum under the diaphragm. IMPRESSION: Prominent interstitial markings throughout the lungs, greatest in the right middle lobe. Likely underlying emphysema with possible right middle lobe infiltrate. Electronically signed by: Ken Alanis MD 02/02/24 01:29 AM
[2024-02-02 01:39] LABS: Anisocytosis Present; Hypochromasia Present; Rouleaux 1+
--- NOTE | 2024-02-02 01:48 | History & Physical Report ---
Date of Service February 02, 2024 Assessment & Plan (1) Asymptomatic hypertensive urgency: Plan: Hypertensive urgency secondary to uncontrolled back pain from thoracic compression fractures Likely chronic BP elevation given chamber enlargement on prior EKGs. COPD, not in acute exacerbation DM2 insulin requiring, patient markedly hyperglycemic due to recent outpatient steroid course, suboptimal control as of remote hemoglobin A1c of 9 from 2020 hypothyroidism, currently not on maintenance medications mood disorder, stable past tobacco abuse OBS Medical telemetry Initiate losartan [facility] Orth[facility] spine consult Re: Uncontrolled back pain/thoracic compression fractures Basal bolus insulin, ISS BG goal 1 10-1 40, carb count coverage, check hemoglobin A1c DVT prophylaxis. SCDs re: possible procedure Full code Text document was generated using Sparks voice recognition software. It may contain grammatical or spelling errors. Kindly contact undersigned for clarification of any documentation item in question. History of Present Illness Chief Complaint: Worsening back pain Primary Care Provider: ISAÍAS Benjamin History obtained from patient and records. Medical history significant for COPD, DM2 insulin requiring, hypothyroidism, chronic back pain, mood disorder, past tobacco abuse Last confinement December 2019 for intractable back pain and E. coli UTI. Orthopedic spine service recommended pain management, PT OT eval. Patient had worsening mid back pain in the last few weeks. Some some radiation to legs. Both legs feel kind of weak from pain as per patient. Denies fever, chills, or incontinence symptoms. Denies headache, chest pain, unusual SOB. Multiple ER visits at [facility]. Temporary relief with medications and outpatient steroid course. Recent [facility] ER visit3 days ago for worsening pain. Patient subsequently discharged home. Patient consulted [facility] yesterday. Thoracolumbar MRI MRI showed 1. Multiple chronic compression deformities again seen throughout the thoracic spine. These are not significantly changed compared to the 01/01/2024 CT. 2. No acute fractures within the thoracic spine. 3. No associated retropulsion within the chronic compression deformities. No significant central canal narrowing. 4, The thoracic spinal cord is normal in course, caliber, and signal intensity. 5. Mild degenerative disc disease again noted throughout the thoracic spine. 1. No fracture or subluxation within the lumbar spine. 2, Mild levos colios is. 3. Multilevel degenerative changes as described above most pronounced at the LA- LS level. SBP 170s, BSG 400s upon arrival at the ER. 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 Allergies Allergy/AdvReac Type Severity Reaction Status Date / Time Penicillins Allergy Hives Verified 02/02/24 02:06 Home Medications Medication Instructions Recorded Confirmed Type blood sugar diagnostic (OneTouch #100 ea 12/01/19 02/02/24 Rx Verio test strips) lancets 33 gauge (OneTouch Delica #100 ea 12/01/19 02/02/24 Rx Lancets) baclofen 20 mg tablet 20 mg PO TID 02/02/24 02/02/24 History gabapentin 300 mg capsule 300 mg PO TID 02/02/24 02/02/24 History insulin glargine 100 unit/mL (3 10 unit subcut DAILY 02/02/24 02/02/24 History mL) subcutaneous pen (Basaglar KwikPen U-100 Insulin) sertraline 25 mg tablet 25 mg PO DAILY 02/02/24 02/02/24 History Past Med/Surg History Problem List (Updated 02/02/24 @ 09:35 by Robert Gillette MD) Asymptomatic hypertensive urgency Back pain (Acute) Low back pain (Acute) Acute thoracic back pain (Acute) Hyperkalemia Hyponatremia Weight loss Elevated alkaline phosphatase level Pulmonary nodules DVT prophylaxis Intractable back pain Uncontrolled type 2 diabetes mellitus (Acute) Left sided sciatica (Acute) Urinary tract infection (Acute) Hypothyroidism DM type 2 (diabetes mellitus, type 2) Surgical History History of cholecystectomy Family History Father Diabetes Brother Diabetes Brother Diabetes Social History Smoking Status: Former smoker Tobacco Type: Cigarettes Cigarettes Per Day: 2; Second Hand Exposure: No; Do You Dip or Chew Tobacco: No; Tobacco Cessation Education Requested by Patient: No Hx Alcohol Use: No Hx Substance Use: No Preferred Language: South Sudanese Communication Ability: Effective 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: No Beliefs That Will Affect Care: None marital status: Current Living Situation: Family Current Living Situation Comment: home with daughter Other Information That Helps Us Care for You: No Feels Safe at Home: Yes Safety Concerns: Feels Safe At This Time Assistive Devices: Cane and Walker Review of Systems Review of Systems: As per HPI, all other systems reviewed and negative Physical Exam Physical Exam: GENERAL: uncomfortable, no respiratory distress SKIN: Normal color, warm HEENT: [place] palpebral conjunctivae, no ptosis, dry buccal mucosa NECK : Supple, no tenderness CHEST : Decreased breath sounds, no tenderness HEART : RRR, no obvious murmurs ABDOMEN: no distention, nontender BACK : midback tenderness, negative straight leg raise test EXTREMITIES : No LE swelling/tenderness, no other conspicuous deformities noted NEUROLOGIC : Coherent, no facial asymmetry, MMTS BUE/BLE 4/5, gait and stance not assessed Results & Data Results & Data Vital Signs (Past 12 Hours) Vital Signs Temp Pulse Resp BP Pulse Ox O2 Del Method 02/02/24 01:30 77 20 146/101 H 96 Room Air 02/02/24 00:30 78 18 153/106 H 94 Room Air 02/02/24 00:00 93 H 20 176/83 H 95 Room Air 02/01/24 23:33 87 20 167/97 H 95 Room Air 02/01/24 23:29 86 02/01/24 23:23 97 Room Air 02/01/24 22:29 36.5 C 110 H 18 161/79 H 94 Room Air Laboratory Results Laboratory Results WBC 8.43 K/ul (4.8-10.8) 02/01/24 23:24 RBC 4.80 M/uL (4.20-5.40) 02/01/24 23:24 Hgb 12.1 g/dl (12.0-16.0) 02/01/24 23:24 Hct 38.6 % (37.0-47.0) 02/01/24 23:24 MCV 80.4 fL (80.0-100.0) 02/01/24 23:24 MCH 25.2 pg (25.0-34.0) 02/01/24 23:24 MCHC 31.3 g/dL (32.0-36.0) L 02/01/24 23:24 Plt Count 353 K/uL (130-400) 02/01/24 23:24 MPV 9.5 fL (9.4-12.4) 02/01/24 23:24 Immature Gran % (Auto) 0.7 % 02/01/24 23:24 Neut % (Auto) 88.0 % 02/01/24 23:24 Lymph % (Auto) 8.5 % 02/01/24 23:24 Moffat % (Auto) 2.7 % 02/01/24 23:24 Eos % (Auto) 0.0 % 02/01/24 23:24 Baso % (Auto) 0.1 % 02/01/24 23:24 Neut # (Auto) 7.41 K/uL (1.40-6.50) H 02/01/24 23:24 Lymph # (Auto) 0.72 K/uL (1.20-3.40) L 02/01/24 23:24 Moffat # (Auto) 0.23 K/uL (0.11-0.59) 02/01/24 23:24 Eos # (Auto) 0.00 K/uL (0.00-0.50) 02/01/24 23:24 Baso # (Auto) 0.01 K/uL (0.00-0.20) 02/01/24 23:24 Immature Gran # (Auto) 0.06 K/uL (0.01-0.20) 02/01/24 23:24 Hypochromasia Present 02/01/24 23:24 Anisocytosis Present 02/01/24 23:24 Rouleaux 1+ 02/01/24 23:24 Sodium 130 mmol/L (136-145) L 02/01/24 23:24 Potassium 4.6 mmol/L (3.5-5.1) 02/01/24 23:24 Chloride 95 mmol/L (98-107) L 02/01/24 23:24 Carbon Dioxide 24 mmol/L (21-32) 02/01/24 23:24 Anion Gap 11 (3-11) 02/01/24 23:24 BUN 23 mg/dl (6-23) 02/01/24 23:24 Creatinine 0.68 mg/dl (0.6-1.2) 02/01/24 23:24 Est Cr Clr Drug Dosing 68.5 ml/min 02/01/24 23:24 eGFR 92.48 02/01/24 23:24 BUN/Creatinine Ratio 33.8 (10-20) H 02/01/24 23:24 Glucose 459 mg/dl (70-99(Fasting)) H* 02/01/24 23:24 Calcium 8.8 mg/dl (8.6-10.3) 02/01/24 23:24 Total Bilirubin 0.3 mg/dl (0.2-1.0) 02/01/24 23:24 AST 13 U/L (13-39) 02/01/24 23:24 ALT 19 U/L (7-52) 02/01/24 23:24 Alkaline Phosphatase 147 U/L (34-104) H 02/01/24 23:24 Total Protein 6.2 gm/dl (6.0-8.3) 02/01/24 23:24 Albumin 3.9 gm/dl (3.4-5.0) 02/01/24 23:24 Globulin 2.3 gm/dl (2.5-4.0) L 02/01/24 23:24 Albumin/Globulin Ratio 1.7 (0.9-2) 02/01/24 23:24 Impressions Chest X-Ray 02/01/24 23:12 Exam(s): XR CXR 1 VIEW EXAM: XR Chest, 1 View CLINICAL HISTORY: Reason for exam: chest and back. TECHNIQUE: Frontal view of the chest. COMPARISON: No relevant prior studies available. FINDINGS: Lungs: Prominent interstitial markings throughout the lungs, greatest in the right middle lobe. No consolidation. Pleural space: Unremarkable. No pneumothorax. Heart: Unremarkable. No cardiomegaly. Mediastinum: Unremarkable. Normal mediastinal contour. Bones/joints: Old healed distal right clavicle fracture. Upper abdomen: Unremarkable as visualized. No pneumoperitoneum under the diaphragm. IMPRESSION: Prominent interstitial markings throughout the lungs, greatest in the right middle lobe. Likely underlying emphysema with possible right middle lobe infiltrate. Electronically signed by: Ken Alanis MD 02/02/24 01:29 AM Diagnostic Findings EKG as per my interpretation : Rate 80, NSR, LAD, LAFB, septal infarct, no ischemia
[2024-02-02] MEDS: LANTUS PER UNIT CHARGE SQ STA (02:09)
[2024-02-02] MEDS: LOSARTAN POTASSIUM 25 MG TAB PO STA (02:10)
[2024-02-02 02:35] LABS: Thyroid Stimulating Hormone 3.311 uIu/ml (0.300-4.500)
[2024-02-02 02:38] LABS: Appearance Urine Clear (Clear); Bacteria Urine Automated None Seen (None Seen); Bilirubin Urine Negative (Negative); Blood Urine Negative (Negative); Cast Urine Automated 0-2 /lpf (0-2); Color Urine Yellow; Epithelial Cell Urine Auto 0-2 /hpf (0-2); Glucose Urine UA 3+ (Negative); Ketones Urine Negative (Negative); Leukocyte Esterase Urine Negative (Negative); Nitrite Urine Negative (Negative); Protein Urine 2+ (Negative); RBC Urine Automated 0-2 /hpf (0-2); Specific Gravity Urine 1.033 (1.000-1.030); Urobilinogen Urine Negative (Negative); WBC Urine Automated 0-5 /hpf (0-5)
[2024-02-02] MEDS: LIDOCAINE 5% 1 PATCH TD SCH (02:42)
[2024-02-02] MEDS: SODIUM CHLORIDE 0.9% 1,000 ML IV ONE (02:42)
[2024-02-02] MEDS ORDERED: GLUCOSE 40% GEL 15 GM TUBE PO PRN (03:19)
[2024-02-02] MEDS ORDERED: DEXTROSE 50% 50 ML SYRINGE IV PRN (03:19)
[2024-02-02] MEDS ORDERED: GLUCAGON FOR INJ 1 MG VIAL SQ PRN (03:19)
[2024-02-02] MEDS ORDERED: CARBOHYDRATES FOR HYPOGLYCEMIA PO PRN (03:19)
[2024-02-02] MEDS ORDERED: GLUCOSE 10 TAB/TUBE PO PRN (03:19)
[2024-02-02] MEDS: INSULIN ASPART PER UNIT CHARGE SC SCH (03:45)
[2024-02-02] MEDS: oxyCODONE HCL IR 5 MG TAB (IMMEDIATE RELEASE) PO PRN (03:45)
[2024-02-02 06:45] LABS: Basophils # (auto) 0.02 K/uL (0.00-0.20); Basophils % (auto) 0.2 %; Eosinophils # (auto) 0.03 K/uL (0.00-0.50); Eosinophils % (auto) 0.4 %; Hematocrit (blood only) 34.2 % (37.0-47.0); Immature Granulocytes # (auto) 0.08 K/uL (0.01-0.20); Lymphocytes # (auto) 2.03 K/uL (1.20-3.40); Lymphocytes % (auto) 25.1 %; Mean Corpuscular Hemoglobin 25.8 pg (25.0-34.0); Mean Corpuscular Hgb Conc 32.2 g/dL (32.0-36.0); Mean Corpuscular Volume 80.1 fL (80.0-100.0); Mean Platelet Volume 9.6 fL (9.4-12.4); Monocytes # (auto) 0.52 K/uL (0.11-0.59); Monocytes % (auto) 6.4 %; Neutrophils % (auto) 66.9 %; Platelet Count 337 K/uL (130-400); Red Blood Count 4.27 M/uL (4.20-5.40); White Blood Count 8.08 K/ul (4.8-10.8)
[2024-02-02 06:55] LABS: BUN Creatinine Ratio 35.8 (10-20); Calcium 8.4 mg/dl (8.6-10.3); Creatinine Clr Calc Pharmacy 79.4 ml/min; Potassium 3.8 mmol/L (3.5-5.1)
[2024-02-02 07:40] LABS: Anisocytosis Present; Hypochromasia Present
[2024-02-02 09:06] LABS: Estimated Average Glucose 160 mg/dl; Hemoglobin A1C 7.2 % (4.5-5.6)
[2024-02-02] MEDS: GABAPENTIN 300 MG CAP PO SCH (10:49)
[2024-02-02] MEDS: SERTRALINE HCL 50 MG TABLET PO SCH (10:49)
[2024-02-02] MEDS: BACLOFEN 20 MG TAB PO SCH (13:10)
--- NOTE | 2024-02-02 13:41 | Communication Note ---
Date of Service: February 02, 2024 Patient was seen and examined at bedside. 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 Patient had thoracolumbar MRI at [facility] recently which showed followin. Multiple chronic compression deformities again seen throughout the thoracic spine. These are not significantly changed compared to the 01/01/2024 CT. 2. No acute fractures within the thoracic spine. 3. No associated retropulsion within the chronic compression deformities. No significant central canal narrowing. 4, The thoracic spinal cord is normal in course, caliber, and signal intensity. 5. Mild degenerative disc disease again noted throughout the thoracic spine. 1. No fracture or subluxation within the lumbar spine. 2, Mild levos colios is. 3. Multilevel degenerative changes as described above most pronounced at the LA- LS level. She is being managed for the following: Intractable back pain In the setting of chronic back pain Multiple compression deformities of thoracic spine Patient presenting with intractable back pain affecting her activities of daily living. Recent back imaging as above. Continue with pain management and bowel regimen, orthospine consult, await recs. PT/OT once orthospine eval. Hypertensive urgency: Likely secondary to acute back pain vs chronic, losartan initiated. Blood pressure now better. Other chronic medical conditions: Continue with/resume home meds as and when able. COPD, not in acute exacerbation DM2 insulin requiring, patient markedly hyperglycemic due to recent outpatient steroid course, suboptimal control as of remote hemoglobin A1c of 9 from 2020. SSI while inpatient, a1c of 7.2 this admission. hypothyroidism, currently not on maintenance medications mood disorder, stable past tobacco abuse Okay DVT prophylaxis. SCDs re: possible procedure Full code For detailed information on the patient, refer to today's H&P note. Text document was generated using [employer] voice recognition software. It may contain grammatical or spelling errors. Kindly contact undersigned for clarification of any documentation item in question.
--- NOTE | 2024-02-02 14:03 | Electrocardiogram Report ---
Test Reason : Blood Pressure : */* mmHG Vent. Rate : 83 BPM Atrial Rate : 83 BPM P-R Int : 146 ms QRS Dur : 82 ms QT Int : 384 ms P-R-T Axes : 66 -32 58 degrees QTcB Int : 451 ms Normal sinus rhythm Left axis deviation Abnormal ECG When compared with ECG of 28-Nov-2019 14:20, No significant change was found Confirmed by Anderson De Santiago ([id number]) on 02/02/2024 2:03:28 PM Referred By: REFERRED SELF Confirmed By: Anderson De Santiago
--- NOTE | 2024-02-02 15:16 | Orthopedic Consultation ---
Date of Service February 02, 2024 Assessment & Plan (1) Back pain: (2) Acute thoracic back pain: History of Present Illness Reason for Consultation: Back pain. Requesting Physician: . Attending Physician: Wale Wright MD 73 year old Female arrives for evaluation of back pain, started 3 weeks ago and is worsening. The patient notes the pain around the bra line, also notes some leg numbness, she usually treats me her symptoms with a lidocaine patch but it worsened, no inciting incidence. The patient has been prescribed oxycodone and muscle relaxers for relieving factors. Current pain is rated as 10/10. Pt denies LOC, headache, fevers, chills, diaphoresis, visual changes, neck pain, chest pain, breathing difficulties, nausea, vomiting, abdominal pain, melena, hematochezia, urinary symptoms, lymphadenopathy, rash, or other complaints. Patient notes that she also takes [id number] medications which do not really help her chronic symptoms. Exam reveals the patient to have no tenderness to palpation in the midline of the thoracic spine, this is in the mid lower thoracic region she indicates her pain. She has intact motor strength in the lower extremities including EHL, ankle flexion extension knee flexion extension and hip flexion. Sensation is present in the lower extremities though she feels it might subjectively be slightly diminished. Reports present of a thoracic and lumbar CT scans from December 30, 2023, from [facility] ER, these report degenerative changes involving the lumbar spine, no evidence of acute fracture, and multiple chronic compression fractures in the thoracic spine when compared to previous study from August 26, 2023. From communication note from medicine: Patient had thoracolumbar MRI at [facility] recently which showed followin. Multiple chronic compression deformities again seen throughout the thoracic spine. These are not significantly changed compared to the 01/01/2024 CT. 2. No acute fractures within the thoracic spine. 3. No associated retropulsion within the chronic compression deformities. No significant central canal narrowing. 4, The thoracic spinal cord is normal in course, caliber, and signal intensity. 5. Mild degenerative disc disease again noted throughout the thoracic spine. 1. No fracture or subluxation within the lumbar spine. 2, Mild levoscoliosis. 3. Multilevel degenerative changes as described above most pronounced at the LA- LS level. Impression: Multiple thoracic compression fractures with recent onset of new th oracic pain. Plan: Recommend patient undergo appropriate medications and mobilization, radiographs of the thoracic and lumbar spine AP and lateral views, the patient may tolerate a thoracolumbar brace. Continue with lidocaine patches as needed, follow-up in 2 weeks. Allergies Allergy/AdvReac Type Severity Reaction Status Date / Time Penicillins Allergy Hives Verified 02/02/24 02:06 Home Medications Medication Instructions Recorded Confirmed Type blood sugar diagnostic ([employer] Services[employer] #100 ea 12/01/19 02/02/24 Rx Verio test strips) lancets 33 gauge (OneTouch Delica #100 ea 12/01/19 02/02/24 Rx Lancets) baclofen 20 mg tablet 20 mg PO TID 02/02/24 02/02/24 History gabapentin 300 mg capsule 300 mg PO TID 02/02/24 02/02/24 History insulin glargine 100 unit/mL (3 10 unit subcut DAILY 02/02/24 02/02/24 History mL) subcutaneous pen ([employer] KwikPen U-100 Insulin) sertraline 25 mg tablet 25 mg PO DAILY 02/02/24 02/02/24 History Past Med/Surg History Problem List (Updated 02/02/24 @ 09:35 by Robert Gillette MD) Asymptomatic hypertensive urgency Back pain (Acute) Low back pain (Acute) Acute thoracic back pain (Acute) Hyperkalemia Hyponatremia Weight loss Elevated alkaline phosphatase level Pulmonary nodules DVT prophylaxis Intractable back pain Uncontrolled type 2 diabetes mellitus (Acute) Left sided sciatica (Acute) Urinary tract infection (Acute) Hypothyroidism DM type 2 (diabetes mellitus, type 2) Surgical History History of cholecystectomy Family History Father Diabetes Brother Diabetes Brother Diabetes Social History Smoking Status: Former smoker Tobacco Type: Cigarettes Cigarettes Per Day: 2; Second Hand Exposure: No; Do You Dip or Chew Tobacco: No; Tobacco Cessation Education Requested by Patient: No Hx Alcohol Use: No Hx Substance Use: No Preferred Language: Kuwaiti Communication Ability: Effective Apricot Packer Required: No Beliefs That Will Affect Care: None marital status: Current Living Situation: Family Current Living Situation Comment: home with daughter Other Information That Helps Us Care for You: No Feels Safe at Home: Yes Safety Concerns: Feels Safe At This Time Assistive Devices: Cane and Walker Review of Systems All systems reviewed & are unremarkable except as noted in HPI & below. Physical Exam . Results & Data Results & Data Laboratory Results . Diagnostic Findings . PG Care Time/CCT Total # of Minutes Spent Total Time Spent with Patient: Total time spent is greater than 50% in coordination of care (as documented) at patient's floor/unit and/or counseling patient: Coding Level of Care Code 82562 IN/OBS CONSULT LVL 3,45M Diagnoses Back pain M54.9 Acute thoracic back pain M54.6 Back pain laterality: bilateral (2) Acute thoracic back pain Back pain laterality: bilateral Qualified Code(s): M54.6 - Pain in thoracic spine
[2024-02-02] MEDS: ACETAMINOPHEN 325 MG TAB PO PRN (16:01)
--- NOTE | 2024-02-02 17:04 | XRay Report ---
EXAMINATION: X-ray thoracic spine 3 view routine CLINICAL HISTORY: Pain, fracture PRIORS: None TECHNIQUE: AP and lateral views of the thoracic spine total with swimmer's view. FINDINGS: Moderate osseous demineralization is noted. No high-grade compression fracture present. Mild kyphosis. Mild vertebral body loss present at T11, T4, T6 and T7. No retropulsed fragments are identified. Findings are indeterminate. C7 vertebral body has a normal appearance. No pneumothorax of the frontal view. Mild atherosclerotic disease. Surgical clips in the right upper quadrant. IMPRESSION: Multiple mild compression deformities in the thoracic spine, age-indeterminate, no high-grade compression fracture or retropulsed fragments. Electronically signed by Emma Antoine 02-02-2024 5:04 PM
[2024-02-02] MEDS: DOCUSATE SODIUM 100 MG CAP PO SCH (20:12)
[2024-02-02] MEDS: LANTUS PER UNIT CHARGE SQ SCH (20:16)
[2024-02-02] MEDS ORDERED: LANTUS PER UNIT CHARGE SQ SCH (21:00)
[2024-02-03 06:20] LABS: Hematocrit (blood only) 35.5 % (37.0-47.0); Hemoglobin 11.2 g/dl (12.0-16.0); Mean Corpuscular Hemoglobin 25.8 pg (25.0-34.0); Mean Corpuscular Hgb Conc 31.5 g/dL (32.0-36.0); Mean Corpuscular Volume 81.8 fL (80.0-100.0); Mean Platelet Volume 9.6 fL (9.4-12.4); Platelet Count 324 K/uL (130-400); Red Blood Count 4.34 M/uL (4.20-5.40); White Blood Count 7.12 K/ul (4.8-10.8)
[2024-02-03 06:42] LABS: BUN Creatinine Ratio 34.7 (10-20); Calcium 8.4 mg/dl (8.6-10.3); Creatinine Clr Calc Pharmacy 56.1 ml/min; Potassium 4.8 mmol/L (3.5-5.1)
[2024-02-03] MEDS: LOSARTAN POTASSIUM 25 MG TAB PO SCH (07:34)
--- NOTE | 2024-02-03 14:12 | Orthopedic Progress Note ---
Date of Service February 03, 2024 Subjective Patient seen and examined, she notes some improvement of her thoracic back pain. Thoracic radiographs revealing multiple compression fractures in the mid thoracic spine and also T11, these were also noted on previous imaging studies as mentioned in note. Impression: Thoracic back pain with mobile compression fractures indeterminate as to the age but none of them severe. Recommend the patient mobilize with physical therapy, follow-up in the office in 1 to 2 weeks for follow-up radiographs and potentially a brace. Review of Systems All systems reviewed & are unremarkable except as noted in HPI & below. Physical Exam . Results & Data Results & Data Laboratory Results . Diagnostic Findings . PG Care Time/CCT Total # of Minutes Spent Total Time Spent with Patient: Total time spent is greater than 50% in coordination of care (as documented) at patient's floor/unit and/or counseling patient: Coding Level of Care Code 82529 SUB INP/OBS CARE 03/26MIN
--- NOTE | 2024-02-03 15:32 | Hospitalist Progress Note ---
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 Patient had thoracolumbar MRI at [facility] recently which showed followin. Multiple chronic compression deformities again seen throughout the thoracic spine. These are not significantly changed compared to the 01/01/2024 CT. 2. No acute fractures within the thoracic spine. 3. No associated retropulsion within the chronic compression deformities. No significant central canal narrowing. 4, The thoracic spinal cord is normal in course, caliber, and signal intensity. 5. Mild degenerative disc disease again noted throughout the thoracic spine. 1. No fracture or subluxation within the lumbar spine. 2, Mild levos colios is. 3. Multilevel degenerative changes as described above most pronounced at the LA- LS level. She is being managed for the following: Intractable back pain In the setting of chronic back pain Multiple compression deformities of thoracic spine Patient presenting with intractable back pain affecting her activities of daily living. Recent back imaging as above. Continue with pain management and bowel regimen, orthospine consult, appreciate recs.f/u in 1-2 weeks. PT/OT, possible dc malik w/ pt/ot recs. Hypertensive urgency: Likely secondary to acute back pain vs chronic, losartan initiated. Blood pressure now better. Other chronic medical conditions: Continue with/resume home meds as and when able. COPD, not in acute exacerbation DM2 insulin requiring, patient markedly hyperglycemic due to recent outpatient steroid course, suboptimal control as of remote hemoglobin A1c of 9 from 2020. SSI while inpatient, a1c of 7.2 this admission. hypothyroidism, currently not on maintenance medications mood disorder, stable past tobacco abuse DVT prophylaxis. hep sc Full code Text document was generated using [employer] voice recognition software. It may contain grammatical or spelling errors. Kindly contact undersigned for clarification of any documentation item in question. Admission and Anticipated Discharge Date Admission Date: February 02, 2024 Subjective Patient was seen and examined at bedside. Patient was sitting up in bed, eating her breakfast, reports back pain better controlled today. Patient denies any suicidal ideation, but it has been brought to my attention that patient was considering suicidal ideation before presentation per case finishing machine adjuster's discussion with home health provider. Behavioral liaison consulted with permission from patient. Patient reports eating okay. Physical Exam Physical Exam: GENERAL: NAD, no respiratory distress SKIN: Normal color, warm HEENT: [place] palpebral conjunctivae, no ptosis, moist buccal mucosa NECK : Supple, no tenderness CHEST : Decreased breath sounds, no tenderness HEART : RRR, no obvious murmurs ABDOMEN: no distention, nontender BACK : midback tenderness, negative straight leg raise test EXTREMITIES : No LE swelling/tenderness, no other conspicuous deformities noted NEUROLOGIC : Coherent, no facial asymmetry, MMTS BUE/BLE 4/5, gait and stance not assessed Results & Data Results & Data Vital Signs (Past 12 Hours) Vital Signs Temp Pulse Pulse Resp BP Pulse Ox O2 Del Method 02/03/24 15:27 37.4 C 62 18 145/67 H 92 Room Air 02/03/24 15:13 85 02/03/24 11:48 36.8 C 67 16 138/68 93 Room Air 02/03/24 09:36 157/77 H 02/03/24 08:03 36.6 C 65 18 190/73 H 92 Room Air 02/03/24 07:47 66 02/03/24 07:40 Room Air
[2024-02-03] MEDS: HEPARIN SOD 5,000 UNIT/0.5 ML VIAL SQ SCH (20:38)
--- NOTE | 2024-02-04 15:01 | Hospitalist Progress Note ---
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 Patient had thoracolumbar MRI at [facility] recently which showed followin. Multiple chronic compression deformities again seen throughout the thoracic spine. These are not significantly changed compared to the 01/01/2024 CT. 2. No acute fractures within the thoracic spine. 3. No associated retropulsion within the chronic compression deformities. No significant central canal narrowing. 4, The thoracic spinal cord is normal in course, caliber, and signal intensity. 5. Mild degenerative disc disease again noted throughout the thoracic spine. 1. No fracture or subluxation within the lumbar spine. 2, Mild levos colios is. 3. Multilevel degenerative changes as described above most pronounced at the LA- LS level. She is being managed for the following: Intractable back pain In the setting of chronic back pain Multiple compression deformities of thoracic spine Patient presenting with intractable back pain affecting her activities of daily living. Recent back imaging as above. Continue with pain management and bowel regimen, orthospine consult, appreciate recs.f/u in 1-2 weeks. PT/OT, possible dc malik w/ pt/ot recs. PT recommending rehab, patient would like to go to rehab. Hypertensive urgency: Likely secondary to acute back pain vs chronic, losartan initiated, Now on hold due to low blood pressure today. Blood pressure now better. if blood pressure does not rise with ongoing pain control, likely can DC losartan. Other chronic medical conditions: Continue with/resume home meds as and when able. COPD, not in acute exacerbation DM2 insulin requiring, patient markedly hyperglycemic due to recent outpatient steroid course, suboptimal control as of remote hemoglobin A1c of 9 from 2020. SSI while inpatient, a1c of 7.2 this admission. hypothyroidism, currently not on maintenance medications mood disorder, stable past tobacco abuse DVT prophylaxis. hep sc Full code PT/OT, CM to assist with DC planning. Patient awaiting placement. Will DG to [facility]. Text document was generated using [employer] voice recognition software. It may contain grammatical or spelling errors. Kindly contact undersigned for clarification of any documentation item in question. Admission and Anticipated Discharge Date Admission Date: February 02, 2024 Subjective Patient was seen and examined at bedside. Patient was lying in bed, on room air, NAD, resting comfortably. Patient reports slightly worse pain today, but reports pain improvement during activity with the use of TLSO brace. Patient reports eating okay and moving bowels okay, denies SI. PT recommending rehab,Patient would like to go to rehab, communicated with case assistant, appreciate help. Physical Exam Physical Exam: GENERAL: NAD, no respiratory distress SKIN: Normal color, warm HEENT: [place] palpebral conjunctivae, no ptosis, moist buccal mucosa NECK : Supple, no tenderness CHEST : Decreased breath sounds, no tenderness HEART : RRR, no obvious murmurs ABDOMEN: no distention, nontender BACK : midback tenderness, negative straight leg raise test EXTREMITIES : No LE swelling/tenderness, no other conspicuous deformities noted NEUROLOGIC : Coherent, no facial asymmetry, MMTS BUE/BLE 4/5, gait and stance not assessed Results & Data Results & Data Vital Signs (Past 12 Hours) Vital Signs Temp Pulse Pulse Resp BP Pulse Ox O2 Del Method 02/04/24 12:27 123/75 02/04/24 11:42 36.5 C 84 18 83/53 L 92 Room Air 02/04/24 08:00 75 02/04/24 07:54 36.7 C 74 20 119/71 90 Room Air 02/04/24 04:01 36.7 C 73 16 131/60 92 Room Air
[2024-02-04 20:32] VITALS: RESP 16
[2024-02-04] MEDS: MoRPHine SULFATE 2 MG/ML CARP IV PRN (21:33)
[2024-02-05 07:32] VITALS: BP 122/77; PULSE 92; TEMP 97.5; O2SAT 92
[2024-02-05] MEDS: hydrOXYzine HCl 10 MG TAB PO PRN (08:06)
--- NOTE | 2024-02-05 13:22 | Hospitalist Progress Note ---
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 Patient had thoracolumbar MRI at [facility] recently which showed followin. Multiple chronic compression deformities again seen throughout the thoracic spine. These are not significantly changed compared to the 01/01/2024 CT. 2. No acute fractures within the thoracic spine. 3. No associated retropulsion within the chronic compression deformities. No significant central canal narrowing. 4, The thoracic spinal cord is normal in course, caliber, and signal intensity. 5. Mild degenerative disc disease again noted throughout the thoracic spine. 1. No fracture or subluxation within the lumbar spine. 2, Mild levos colios is. 3. Multilevel degenerative changes as described above most pronounced at the LA- LS level. She is being managed for the following: Intractable back pain In the setting of chronic back pain Multiple compression deformities of thoracic spine Patient presenting with intractable back pain affecting her activities of daily living. Recent back imaging as above. Current pain medications are helping the pain Continue with pain management and bowel regimen, Appreciate orthospine consult,- conservative management and with recommendation to follow-up in 1 to 2 weeks. Has been getting PT and OT evaluation PT recommending rehab, patient would like to go to rehab. She has been accepted to [facility] likely to be transferred this afternoon Hypertensive urgency: Likely secondary to acute back pain vs chronic, losartan initiated, Now on hold due to low blood pressure today. Blood pressure now better. if blood pressure does not rise with ongoing pain control, likely can DC losartan. Her blood pressure is controlled right now and will continue the current medications Other chronic medical conditions: Continue with/resume home meds as and when able. COPD, not in acute exacerbation DM2 insulin requiring, patient markedly hyperglycemic due to recent outpatient steroid course, suboptimal control as of remote hemoglobin A1c of 9 from 2020. SSI while inpatient, a1c of 7.2 this admission. Hypothyroidism, currently not on maintenance medications Mood disorder, stable Past tobacco abuse DVT prophylaxis. hep sc Full code Text document was generated using [employer] recognition software. It may contain grammatical or spelling errors. Kindly contact undersigned for clarification of any documentation item in question. Admission and Anticipated Discharge Date Admission Date: February 04, 2024 Subjective 02/05/2024 The patient was seen and examined in medical telemetry unit She has been complaining of back pain without radiation Has had physical therapy with the pain medications on board and she has been doing pretty well She feels that she can go to [facility] to continue physical therapy this afternoon Review of Systems Review of Systems: All systems reviewed and are unremarkable except as noted below Physical Exam Physical Exam: Lying in bed without any acute distress Constitutional: average body habitus; not ill appearing Eyes: PERRL, conjunctivae normal, anicteric sclerae ENMT: external ear and nose normal, oropharynx normal Neck: trachea midline, no thyromegaly Respiratory: no respiratory distress Auscultation: lungs clear to auscultation bilaterally Cardiovascular: Rate/Rhythm: regular rate and regular rhythm; not tachycardic Heart Sounds: normal S1 and normal S2; no murmur Extremities: no edema Gastrointestinal (Abdomen): Inspection/Auscultation: normal bowel sounds; abdomen not distended Percussion/Palpation: abdomen soft; abdomen nontender Musculoskeletal: Localized back pain at the lower thoracic level without any radiation of pain Neurologic: normal touch/pain/proprioception and moves all extremities; no focal motor deficits Lymphatic: no cervical or axillary lymphadenopathy Results & Data Results & Data Vital Signs (Past 12 Hours) Vital Signs Temp Pulse BP Pulse Ox O2 Del Method 02/05/24 07:32 36.4 C L 92 H 122/77 92 Room Air 02/05/24 07:24 Room Air Medications Administered Current Inpatient Medications Acetaminophen (Acetaminophen 325 Mg Tab) 650 mg PO QID PRN PRN Reason: pain/fever Stop: 03/03/24 01:31 Last Admin: 02/05/24 08:50 Dose: 650 mg Baclofen (Baclofen 20 Mg Tab) 5 mg PO TID [facility] Stop: 03/03/24 13:59 Last Admin: 02/05/24 13:01 Dose: 5 mg Dextrose (Dextrose 50% 50 Ml Syringe) 25 - 50 ml IV UD PRN; Protocol PRN Reason: Hypoglycemia Protocol Stop: 03/03/24 03:18 Docusate Sodium (Docusate Sodium 100 Mg Cap) 100 mg PO BID MICHAEL Stop: 03/03/24 20:59 Last Admin: 02/05/24 08:10 Dose: 100 mg Gabapentin (Gabapentin 300 Mg Cap) 300 mg PO TID MICHAEL Stop: 03/03/24 09:19 Last Admin: 02/05/24 13:01 Dose: 300 mg Glucagon (Glucagon For Inj 1 Mg Vial) 1 mg SQ UD PRN; Protocol PRN Reason: Hypoglycemia Protocol Stop: 03/03/24 03:18 Glucose (Glucose 40% Gel 15 Gm Tube) 15 - 30 gm PO UD PRN; Protocol PRN Reason: Hypoglycemia Protocol Stop: 03/03/24 03:18 Glucose (Glucose 10 Tab/Tube) 4 - 8 tab PO UD PRN; Protocol PRN Reason: Hypoglycemia Protocol Stop: 03/03/24 03:18 Heparin Sodium (Porcine) (Heparin Sod 5,000 Unit/0.5 Ml Vial) 5,000 units SQ Q12 MICHAEL Stop: 03/04/24 20:59 Last Admin: 02/05/24 08:10 Dose: 5,000 units Hydroxyzine HCl (Hydroxyzine Hcl 10 Mg Tab) 10 mg PO QID PRN PRN Reason: Anxiety Stop: 03/03/24 02:07 Last Admin: 02/05/24 08:06 Dose: 10 mg Insulin Aspart (Insulin Aspart Per Unit Charge) 0 units SC ACHS [facility] Stop: 03/03/24 03:18 Last Admin: 02/05/24 13:00 Dose: 3 units Insulin Glargine (Lantus Per Unit Charge) 5 units SQ BID MICHAEL Stop: 03/03/24 20:59 Last Admin: 02/05/24 08:11 Dose: 5 units Lidocaine (Lidocaine 5% 1 Patch) 1 patch TD QAM [facility] Stop: 03/03/24 02:09 Last Admin: 02/05/24 08:05 Dose: 1 patch Losartan Potassium (Losartan Potassium 25 Mg Tab) 25 mg PO QAM [facility] Stop: 03/04/24 08:59 Last Admin: 02/04/24 09:32 Dose: 25 mg Miscellaneous (Remove Lidoderm Patch) 1 each N/A DAILY@2100 [facility] Stop: 03/03/24 14:59 Last Admin: 02/04/24 20:37 Dose: 1 each Miscellaneous (Carbohydrates For Hypoglycemia ) 15 - 30 gm PO UD PRN PRN Reason: Hypoglycemia Protocol Stop: 03/03/24 03:18 Morphine Sulfate (Morphine Sulfate 2 Mg/Ml Carp) 2 mg IV Q3H PRN PRN Reason: Pain Stop: 02/16/24 01:31 Last Admin: 02/05/24 08:10 Dose: 2 mg Oxycodone HCl (Oxycodone Hcl Ir 5 Mg Tab (Immediate Release)) 5 mg PO Q4H PRN PRN Reason: Pain Stop: 02/16/24 01:31 Last Admin: 02/05/24 12:02 Dose: 5 mg Sertraline HCl (Sertraline Hcl 50 Mg Tablet) 25 mg PO DAILY MICHAEL Stop: 03/03/24 09:29 Last Admin: 02/05/24 08:07 Dose: 25 mg
--- NOTE | 2024-02-06 07:45 | Discharge Summary ---
Date of Service February 06, 2024 Admission HPI Per Admitting Provider History obtained from patient and records. Medical history significant for COPD, DM2 insulin requiring, hypothyroidism, chronic back pain, mood disorder, past tobacco abuse Last confinement December 2019 for intractable back pain and E. coli UTI. Orthopedic spine service recommended pain management, PT OT [place]. Patient had worsening mid back pain in the last few weeks. Some some radiation to legs. Both legs feel kind of weak from pain as per patient. Denies fever, chills, or incontinence symptoms. Denies headache, chest pain, unusual SOB. Multiple ER visits at [facility] ER. Temporary relief with medications and outpatient steroid course. Recent [facility] ER visit3 days ago for worsening pain. Patient subsequently discharged home. Patient consulted [facility] ER yesterday. Thoracolumbar MRI MRI showed 1. Multiple chronic compression deformities again seen throughout the thoracic spine. These are not significantly changed compared to the 01/01/2024 CT. 2. No acute fractures within the thoracic spine. 3. No associated retropulsion within the chronic compression deformities. No significant central canal narrowing. 4, The thoracic spinal cord is normal in course, caliber, and signal intensity. 5. Mild degenerative disc disease again noted throughout the thoracic spine. 1. No fracture or subluxation within the lumbar spine. 2, Mild levos colios is. 3. Multilevel degenerative changes as described above most pronounced at the LA- LS level. SBP 170s, BSG 400s upon arrival at the ER. 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 Admission Exam Per Admitting Provider Physical Exam: GENERAL: uncomfortable, no respiratory distress SKIN: Normal color, warm HEENT: [place] palpebral conjunctivae, no ptosis, dry buccal mucosa NECK : Supple, no tenderness CHEST : Decreased breath sounds, no tenderness HEART : RRR, no obvious murmurs ABDOMEN: no distention, nontender BACK : midback tenderness, negative straight leg raise test EXTREMITIES : No LE swelling/tenderness, no other conspicuous deformities noted NEUROLOGIC : Coherent, no facial asymmetry, MMTS BUE/BLE 4/5, gait and stance not assessed Principal Diagnosis Intractable back pain secondary to multiple compression deformities of thoracic spine, hypertensive urgency, controlled COPD Discharge Exam Lying in bed without any acute distress Constitutional average body habitus; not ill appearing Eyes PERRL, conjunctivae normal, anicteric sclerae ENMT external ear and nose normal, oropharynx normal Neck trachea midline, no thyromegaly Respiratory no respiratory distress Auscultation: lungs clear to auscultation bilaterally Cardiovascular Rate/Rhythm: regular rate and regular rhythm; not tachycardic Heart Sounds: normal S1 and normal S2; no murmur Extremities: no edema Gastrointestinal (Abdomen) Inspection/Auscultation: normal bowel sounds; abdomen not distended Percussion/Palpation: abdomen soft; abdomen nontender Neurologic normal touch/pain/proprioception and moves all extremities; no focal motor deficits Lymphatic no cervical or axillary lymphadenopathy Discharge Data Allergies Allergy/AdvReac Type Severity Reaction Status Date / Time Penicillins Allergy Hives Verified 02/02/24 02:06 Consultations 02/02/24 01:27 ED Decision to Admit Stat 02/02/24 02:09 Consult Orthopedic Spine Surgery Routine 02/03/24 11:53 Consult Behavioral Health Liaison Routine Hospital Course (1) Back pain: Plan 73-year-old lady with PMH of COPD, T2DM insulin requiring, hypothyroidism, chronic back pain, mood disorder, past tobacco abuse came in with complaint of worsening mid back pain 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 Patient had thoracolumbar MRI at [facility] recently which showed followin. Multiple chronic compression deformities again seen throughout the thoracic spine. These are not significantly changed compared to the 01/01/2024 CT. 2. No acute fractures within the thoracic spine. 3. No associated retropulsion within the chronic compression deformities. No significant central canal narrowing. 4, The thoracic spinal cord is normal in course, caliber, and signal intensity. 5. Mild degenerative disc disease again noted throughout the thoracic spine. 1. No fracture or subluxation within the lumbar spine. 2, Mild levos colios is. 3. Multilevel degenerative changes as described above most pronounced at the LA- LS level. She is being managed for the following: Intractable back pain In the setting of chronic back pain Multiple compression deformities of thoracic spine Patient presenting with intractable back pain affecting her activities of daily living. Recent back imaging as above. Current pain medications are helping the pain Continue with pain management and bowel regimen, Appreciate orthospine consult,- conservative management and with recommendation to follow-up in 1 to 2 weeks. Has been getting PT and OT evaluation PT recommending rehab, patient would like to go to rehab. She has been accepted to [facility] likely to be transferred this afternoon Hypertensive urgency: Likely secondary to acute back pain vs chronic, losartan initiated, Now on hold due to low blood pressure today. Blood pressure now better. if blood pressure does not rise with ongoing pain control, likely can DC losartan. Her blood pressure is controlled right now and will continue the current medications Other chronic medical conditions: Continue with/resume home meds as and when able. COPD, not in acute exacerbation DM2 insulin requiring, patient markedly hyperglycemic due to recent outpatient steroid course, suboptimal control as of remote hemoglobin A1c of 9 from 2020. SSI while inpatient, a1c of 7.2 this admission. Hypothyroidism, currently not on maintenance medications Mood disorder, stable Past tobacco abuse DVT prophylaxis. hep sc Full code Text document was generated using [employer] voice recognition software. It may contain grammatical or spelling errors. Kindly contact undersigned for clarification of any documentation item in ques tion. Total Time Total Time Spent Total Time Spent (In Minutes): 35 minutes Discharge Plan Discharge Items Patient Disposition: Transfer Inpatient Rehab Fac Reason For Visit: HTN URG, BACK PAIN Discharge Diagnosis: Intractable back pain secondary to multiple compression deformities of thoracic spine, hypertensive urgency, controlled COPD Condition on Discharge: Fair Activity: As commented below Activity Comment: Will need to continue physical therapy with the back brace on Non-emergency contact: Primary Care Provider Call non-emergency contact if: you have any medication questions and your symptoms worsen Follow-up/Referrals: Monika Rodriguez CRNP [Primary Care Provider] - ( Please make an appointment with your PCP within 7 days following discharge from the facility) Diet: Carb Consistent or DM2 Addtl Attending Provider Instructions: Please take the precaution to avoid falls Take your medications as advised Try to use less of your narcotic pain medications to avoid drowsiness, constipation and addiction Need to have a follow-up appointment with orthospine in 1 to 2 weeks Continue with the physical therapy as advised Pending Studies at Discharge: No Stand-Alone Forms: [facility] Skilled Items Patient informed of condition?: Yes DNR: No Discharge Level of Care: Acute rehab Communicable Disease: No Discharge Prognosis: Stable Lines: None Urinary Catheter: No Medications and DC Order Prescriptions: New baclofen 20 mg Tablet 5 mg PO TID Qty: 30 0RF lidocaine 5 % Adhesive Patch,Medicated 1 patch transdermal QAM Qty: 30 0RF losartan 25 mg Tablet 25 mg PO QAM Qty: 30 0RF oxycodone 5 mg Tablet 5 mg PO Q4H PRN (Reason: pain) Qty: 20 0RF Continued (DME) OneTouch Verio test strips Strip See Rx Instructions .ROUTE .MEDSUPPLY Qty: 100 0RF Rx Instructions: 3x/day. E11.65 DM2 with hyperglycemia (DME) lancets [OneTouch Delica Lancets] 33 gauge misc See Rx Instructions .ROUTE .MEDSUPPLY Qty: 100 0RF Rx Instructions: 3x/day. E11.65 DM2 with hyperglycemia insulin glargine [Basaglar KwikPen U-100 Insulin] 100 unit/mL (3 mL) insulin pen 10 unit SUBCUT DAILY gabapentin 300 mg capsule 300 mg PO TID sertraline 25 mg tablet 25 mg PO DAILY Discontinued baclofen 20 mg tablet 20 mg PO TID Discharge Orders: Discharge Order (Routine); Ordered 02/05/24 Ordered By: Sharita Underwood Admission Data Admit Date/Time: 02/04/24 16:24 Attending Provider: Sharita Underwood Admit Provider: Robert Gillette Primary Care Provider: Monika Rodriguez Other Providers: [facility]; Robert Gillette; Tucker Lawson; Wale Wright Other Interventions: Discharge Summary Assessment (RN) Last Done: 02/05/24 14:06
--- NOTE | 2024-02-06 15:42 | Communication Note ---
By CMS guidelines, a determination that the admission or continued stay is not medically necessary has been made by a member of the UR committee and a physician for this hospital stay, therefore a Code 44 will be completed and the Inpatient admission will be changed to outpatient.
== END 2024-02-05 14:41 | DRG 552 ==
LOC: 2N 22:22 → ED 22:22 → 2N 02-02 03:04 → SUATTDRO 02-04 16:24